=== PATIENT | male | born 1945 | race Caucasian/White ===

== ENCOUNTER 2016-07-02 06:02 | Day surgery (SDC) | payer MEDICARE, OTHER ==
[2016-07-01 16:12] LABS: HEMATOCRIT 41.3 % (42.0-54.0); HEMOGLOBIN 13.8 g/dL (13.5-17.5); MCH 32.2 pg (26.0-34.0); MCHC 33.4 g/dL (31.0-37.0); MCV 96.3 fL (80.0-100.0); MEAN PLATELET VOLUME 9.4 fL (7.4-10.4); PLATELET COUNT 208 10x3/uL (130-400); RBC 4.29 10x6/uL (4.20-6.10); RDW 13.8 % (11.5-14.5); WBC 24.2 10x3/uL (4.8-10.8)
[2016-07-01 16:34] LABS: APTT 25.9 SECONDS (22.8-39.4); INR 0.99 (0.85-1.17); PROTIME 12.9 SECONDS (11.6-15.0)
[2016-07-01 16:35] LABS: ANION GAP 15.5 mmol/L (8-16); CALCIUM 9.8 mg/dL (8.5-10.1); CARBON DIOXIDE 25.9 mmol/L (21.0-32.0); CREATININE - SERUM 1.9 mg/dL (0.6-1.3); POTASSIUM - SERUM 4.4 mmol/L (3.5-5.1)
[2016-07-01 17:36] LABS: LYMPHOCYTES 75 % (15-50); MONOCYTES 1 % (2-11); NEUTROPHILS 24 % (40-80); PLATELET ESTIMATE NORMAL
[~2016-07-02] VITALS: Ht 172.7 cm; Wt 87.1 kg
[~2016-07-02 06:02] MED LIST: BAYER CHEWABLE81 MG PO; CO Q-1030 MG PO; CRESTOR10 MG PO; FISH OIL 1,0001 CA1 PO; GLUCOPHAGE1000 MG PO; KLOR-CON 1010 MEQ PO; LISINOPRIL2.5 MG PO; OMEPRAZOLE20 M1 PO; PROZAC20 MG PO; REQUIP1 MG PO; ZEBETA10 MG PO
[2016-07-02 08:53] VITALS: BP 117/70; Ht 172.7 cm; Wt 87.1 kg
--- NOTE | 2016-07-02 13:39 | NUR ---
PT TOLERATING FULL LIQUIDS. FAMILY AT BEDSIDE. VSS. WILL CONTINUE TO MONITOR.
--- NOTE | 2016-07-02 14:11 | NUR ---
1400- VOIDED WITHOUT DIFFICULTY 1410- IV D/C'D, PT TOLERATED. CATHETER INTACT.
--- NOTE | 2016-07-02 14:40 | NUR ---
1420- DISCHARGE INSTRUCTIONS COMPLETED, PT VERBALIZED UNDERSTANDING. PAPERWORK SIGNED. 1425- DISCHARGED VIA WHEELCHAIR WITH .
--- NOTE | 2016-07-03 14:58 | OP ---
PATIENT NAME: TRINIDAD SOSA MEDICAL RECORD: [id number] :43 LOCATION:.[facility] ADMISSION DATE: SURGEON: DMITRY UGALDE MD DATE OF OPERATION: 07/02/2016 SURGEON: Dmitry Ugalde MD ANESTHESIA: MAC by Rajesh Cintron CRNA. PREOPERATIVE DIAGNOSES: Elevated PSA 9.3. FINDINGS: Small prostate without hypoechoic areas, 17 mL volume. PROCEDURE: Transrectal ultrasound and prostate biopsy. SPECIMENS: Prostate biopsy cores. COMPLICATIONS: None. ESTIMATED BLOOD LOSS: Minimal CLINICAL HISTORY: The patient is a 70-year-old male patient of Dr. Juan Manuel Jiang. He has been observed for a steadily rising PSA. It had been in the region and this past year, it oscar to 9.3. He has a brother who has BPH, but there is no family history of prostate cancer. On digital rectal examination, his prostate is small and it is benign-feeling. He comes now to have a transrectal ultrasound and prostate biopsy. He has been taking Bactrim for the past 2 days. He will continue to take it for 2 more days. We also gave him Ancef and gentamicin in the OR today. He has had a Fleet Enema last night to clear out his rectum. DESCRIPTION OF PROCEDURE: The patient was given IV sedation. He was then placed into dorsal lithotomy position and prepped and draped. The transrectal ultrasound probe was placed into the rectum and used to measure the prostate length, depth and width. From there, using the standard ellipsoid, we calculated prostatic volume at 17 mL. We took at least 3 samples from each of the following areas, the left apex, left mid and left base followed by the right apex, right mid and right base. All of these samples were sent to pathology in formalin in separate containers. That is, each of the 3 samples from the right mid for example, were placed into one container labeled to right mid. There were 6 containers in total. The patient tolerated the procedure quite well and at the end of the procedure, he was brought to the preop holding area. TRANSINT:[id number] Voice Confirmation ID: [id number] DOCUMENT ID: [id number] DMITRY UGALDE MD at 1458 CC: [id number] DICTATION DATE: 07/02/[address] JUDGE: 07/02/16 3506 [facility] 07/02/16 [facility] [address] [place] [address]
== END 2016-07-02 14:25 | disposition home or self-care (01) ==
LOC: D.OPS 06:02 → D.PAN 11:30 → D.OPS 14:25 → D.PAN 07-09 08:15
PROVIDERS: Anesthesiology
DX: R97.20 Elevated prostate specific antigen [PSA] (principal); J45.909 Unspecified asthma, uncomplicated; I10 Essential (primary) hypertension; E11.9 Type 2 diabetes mellitus without complications; K21.9 Gastro-esophageal reflux disease without esophagitis; G47.30 Sleep apnea, unspecified; Z01.812 Encounter for preprocedural laboratory examination

== ENCOUNTER → 2016-07-21 08:11 | Outpatient (CLI) | payer MEDICARE, OTHER ==
[2016-07-02 08:53] VITALS: BMI 29.2
== END | disposition home or self-care (01) ==
LOC: D.NM 08:11
DX: C61 Malignant neoplasm of prostate (principal)

== ENCOUNTER → 2016-07-27 08:22 | Outpatient (CLI) | payer MEDICARE, OTHER ==
[2016-07-02 08:53] VITALS: BMI 29.2
== END | disposition home or self-care (01) ==
LOC: D.CT 08:22
DX: C61 Malignant neoplasm of prostate (principal); C91.10 Chronic lymphocytic leukemia of B-cell type not having achieved remission

== ENCOUNTER 2016-07-29 06:58 | Outpatient (CLI) | payer MEDICARE, OTHER ==
[~2016-07-29] VITALS: Ht 172.7 cm; Wt 88.6 kg
[2016-07-29 07:45] LABS: BASOPHILS 0.2 % (0-2); EOSINOPHILS 0.4 % (0-7); HEMATOCRIT 36.9 % (42.0-54.0); HEMOGLOBIN 12.1 g/dL (13.5-17.5); IMMATURE GRANULOCYTES 0.2 % (0-5); LYMPHOCYTES 68.5 % (15-50); MCH 32.4 pg (26.0-34.0); MCHC 32.8 g/dL (31.0-37.0); MCV 98.7 fL (80.0-100.0); MEAN PLATELET VOLUME 9.4 fL (7.4-10.4); NEUTROPHILS 24.7 % (40-80); PLATELET COUNT 207 10x3/uL (130-400); RBC 3.74 10x6/uL (4.20-6.10); RDW 14.4 % (11.5-14.5); WBC 14.5 10x3/uL (4.8-10.8)
[2016-07-29 07:47] LABS: CARBON DIOXIDE 25.3 mmol/L (21.0-32.0); CREATININE - SERUM 1.2 mg/dL (0.6-1.3); POTASSIUM - SERUM 4.3 mmol/L (3.5-5.1)
[2016-07-29 07:50] LABS: APTT 27.6 SECONDS (22.8-39.4); INR 0.96 (0.85-1.17); PROTIME 12.7 SECONDS (11.6-15.0)
[2016-07-29] MEDS ORDERED: GEMFIBROZIL600 MG PO (09:14)
[2016-07-29 09:19] VITALS: Ht 172.7 cm; Wt 88.6 kg
--- NOTE | 2016-07-29 14:09 | NUR ---
1055 SEE POST TRANSFUSION CHECKLIST FOR VITAL SIGNS.
== END 2016-07-29 13:15 | disposition home or self-care (01) ==
LOC: D.OPS 06:58 → D.CT 09:00 → D.OPS 09:00
PROVIDERS: Specialist
DX: C91.10 Chronic lymphocytic leukemia of B-cell type not having achieved remission (principal)

== ENCOUNTER 2016-09-17 05:10 | Inpatient (IN) | payer MEDICARE, OTHER ==
[2016-09-16 10:10] LABS: HEMATOCRIT 37.5 % (42.0-54.0); HEMOGLOBIN 12.7 g/dL (13.5-17.5); MCH 31.8 pg (26.0-34.0); MCHC 33.9 g/dL (31.0-37.0); MEAN PLATELET VOLUME 7.9 fL (7.4-10.4); RBC 3.99 10x6/uL (4.20-6.10); RDW 13.5 % (11.5-14.5); WBC 12.3 10x3/uL (4.8-10.8)
[2016-09-16 10:11] LABS: PLATELET COUNT 305 10x3/uL (130-400)
[2016-09-16 10:19] LABS: INR 1.05 (0.85-1.17); PROTIME 13.6 SECONDS (11.6-15.0)
[2016-09-16 10:20] LABS: ANION GAP 15.7 mmol/L (8-16); CALCIUM 9.2 mg/dL (8.5-10.1); CARBON DIOXIDE 25.9 mmol/L (21.0-32.0); CREATININE - SERUM 1.3 mg/dL (0.6-1.3); POTASSIUM - SERUM 4.6 mmol/L (3.5-5.1)
[2016-09-16 10:27] LABS: LYMPHOCYTES 49 % (15-50); MONOCYTES 14 % (2-11); NEUTROPHILS 30 % (40-80); PLATELET ESTIMATE NORMAL
[2016-09-17] VITALS (13 sets, daily range): BP systolic 111–153; BP diastolic 55–89; Ht 172.7 cm; Wt 85.5 kg
[~2016-09-17] VITALS: Ht 172.7 cm; Wt 85.5 kg
[~2016-09-17 05:10] MED LIST changes: +GEMFIBROZIL600 MG PO
--- NOTE | 2016-09-17 08:27 | NUR ---
PATIENT POSITIONED SUPINE FLEXED AND KIDNEY REST UP, DR UGALDE PRESENT ON POSITIONING, LUCIE.
--- NOTE | 2016-09-17 12:48 | NUR ---
ALL BPS VIA RIGHT RADIAL ART LINE
[2016-09-17 12:50] LABS: BASOPHILS 0.1 % (0-2); EOSINOPHILS 0.4 % (0-7); IMMATURE GRANULOCYTES 0.3 % (0-5); LYMPHOCYTES 47.6 % (15-50); MCH 32.4 pg (26.0-34.0); MCHC 33.9 g/dL (31.0-37.0); MCV 95.5 fL (80.0-100.0); MEAN PLATELET VOLUME 8.5 fL (7.4-10.4); MONOCYTES 4.8 % (2-11); NEUTROPHILS 46.8 % (40-80); RDW 13.6 % (11.5-14.5)
[2016-09-17 12:51] LABS: HEMATOCRIT 29.8 % (42.0-54.0); HEMOGLOBIN 10.1 g/dL (13.5-17.5); PLATELET COUNT 243 10x3/uL (130-400); RBC 3.12 10x6/uL (4.20-6.10); WBC 19.2 10x3/uL (4.8-10.8)
--- NOTE | 2016-09-17 13:18 | NUR ---
PT ARRIVED TO ROOM ON RECOVERY BED, MOVED OVER TO ICU BED. PT HAS PALPABLE BILATERAL LOWER EXTREMITY PULSES. DRESSING TO LOWER ABDOMEN INTACT, NO BLEEDING NOTED AT THIS TIME. J LUIS DRAIN IN PLACE AT LOWER ABDOMEN. BULB COMPRESSED, BLOODY DRAINAGE NOTED. BILATERAL RADIAL PULSES NOTED. PT HAS RIGHT RADIAL ART LINE IN PLACE. WRIST PROTECTOR IN USE. PT ON 2L NC. BREATH SOUNDS CLEAR. DOES SNORE. HR REGULAR.
--- NOTE | 2016-09-17 14:23 | NUR ---
PT RESTING. FAMILY HAS BEEN IN TO SEE SINCE RECEIVING TO ICU. NO DISTRESS NOTED.
--- NOTE | 2016-09-17 14:50 | NUR ---
PT C/O PAIN IN ABDOMEN. MORPHINE PROVIDED. J LUIS DRAIN EMPTIED. 80ML EMPTIED. BULB COMPRESSED. ANOTHER 80ML OUT IMMEDIATELY.
--- NOTE | 2016-09-17 14:56 | NUR ---
DR UGALDE BY TO SEE PATIENT. ALERTED HIM TO AMOUNT OF DRAINAGE. SAYS THERE WILL BE QUITE A BIT OF DRAINAGE WITH THIS PARTICULAR PROCEDURE AND THAT THE PATIENT DOES HAVE A URINE LEAK AT THE ANASTAMOSIS AT THE POSTERIOR STITCH. IF PATIENT STARTS TO HAVE BLADDER SPASMS HE MAY HAVE A O/B SUPPOSITORY Q8H
--- NOTE | 2016-09-17 15:02 | NUR ---
FAMILY AT BEDSIDE AT THIS TIME FOR VISITATION.
--- NOTE | 2016-09-17 17:05 | NUR ---
PT DINNER TRAY PROVIDED. HOB SET AT 45 DEGREES PER REQUEST. PT DENIES ANY OTHER NEEDS AT THIS TIME. J LUIS HAS BEEN DRAINED ONCE AGAIN AND RECORDED IN I&O FLOWSHEET.
--- NOTE | 2016-09-17 18:02 | NUR ---
FAMILY AT BEDSIDE FOR 6PM VISITATION. PT HAS CONSUMED ALL OF CLEAR LIQUID DIET TRAY. REQUESTED WATER. DOES HAVE SOME PAIN IN ABDOMEN WHEN HE MOVES AROUND OR COUGHS. PILLOW PROVIDED TO HELP SPLINT.
--- NOTE | 2016-09-17 19:15 | NUR ---
SHIFT ASSESSMENT COMPLETE, PATIENT RESTING WELL, DENIES PAIN. STILL A LITTLE LETHARGIC AND CONFUSED TO TIME FROM ANESTHESIA. LUNG SOUNDS CLEAR, BOWEL SOUNDS ACTIVE. INCISION ON LOWER ABDOMINAL IS COVERED WITH DRESSING AND IS C/D/I. SALVADOR CATHETER DRAINING BLOOD TINGED URINE. J LUIS DRAIN ON LOWER ABDOMEN DRAINING SEROSANG FLUID. PERIPHERAL PULSES +2, RIGHT RADIAL A-LINE COVERED WITH DRESSING, WRIST PROTECTOR IN. EXTREMITY WARM AND PINK WITH GOOD SENSATION. DENIES NEED AT THIS TIME.
--- NOTE | 2016-09-17 21:00 | NUR ---
FAMILY AT BEDSIDE, UPDATE PROVIDED.
--- NOTE | 2016-09-17 23:05 | NUR ---
REASSESSMENT COMPLETE, NO ACUTE CHANGES. PATIENT HAVING QUITE A BIT OF DRAINAGE FROM J LUIS DRAIN. WAS MADE AWARE OF IT TODAY AND SAID IT WAS TO BE EXPECTED. WILL MONITOR. VSS.
[2016-09-18] VITALS (14 sets, daily range): BP systolic 124–176; BP diastolic 62–74
--- NOTE | 2016-09-18 | NUR ---
NIBP CUFF USED DUE TO DIFFICULTY GETTING A-LINE TO GIVE GOOD READING.
--- NOTE | 2016-09-18 01:10 | NUR ---
PATIENT RESTING QUIETLY IN BED WITH EYES CLOSED. RR EVEN AND UNLABORED. NO DISTRESS NOTED, VSS.
--- NOTE | 2016-09-18 03:00 | NUR ---
REASSESSMENT COMPLETE, SEE FLOWSHEET. VSS.
--- NOTE | 2016-09-18 05:05 | NUR ---
ATTEMPTED TO DRAW AM LABS FROM RIGHT RADIAL A-LINE. UNABLE TO DRAW, LAB CALLED TO NOTIFY.
[2016-09-18 05:34] LABS: HEMATOCRIT 27.6 % (42.0-54.0); HEMOGLOBIN 9.2 g/dL (13.5-17.5); LYMPHOCYTES 56.8 % (15-50); MCH 31.4 pg (26.0-34.0); MCHC 33.3 g/dL (31.0-37.0); MCV 94.2 fL (80.0-100.0); MEAN PLATELET VOLUME 8.2 fL (7.4-10.4); NEUTROPHILS 37.3 % (40-80); PLATELET COUNT 256 10x3/uL (130-400); RBC 2.93 10x6/uL (4.20-6.10); RDW 13.3 % (11.5-14.5); WBC 16.5 10x3/uL (4.8-10.8)
[2016-09-18 05:44] LABS: ANION GAP 14.3 mmol/L (8-16); CALCIUM 7.7 mg/dL (8.5-10.1); CARBON DIOXIDE 22.1 mmol/L (21.0-32.0); CREATININE - SERUM 1.1 mg/dL (0.6-1.3); POTASSIUM - SERUM 4.4 mmol/L (3.5-5.1)
--- NOTE | 2016-09-18 06:10 | NUR ---
FAMILY AT BEDSIDE, UPDATE GIVEN.
--- NOTE | 2016-09-18 07:06 | NUR ---
PT AWAKE. SHIFT ASSESSMENT COMPLETE. ON HOME CPAP. C/O PAIN IN ABDOMEN. J LUIS DRAIN EMPTIED. 160ML OF BLOOD TINGED DRAINAGE. DRESSING IS CLEAN DRY AND INTACT. URINE MORE CLEAR TODAY. PALPABLE BILATERAL PULSES UPPER AND LOWER. ART LINE NO LONGER FUNCTIONING PROPERLY, BP CUFF IN USE. TEMP IS 99.9 AXILLARY. REMOVED SEVERAL BLANKETS. NS INFUSING AT 150ML/HR.
--- NOTE | 2016-09-18 07:58 | OP ---
PATIENT NAME: TRINIDAD SOSA MEDICAL RECORD: [id number] :43 LOCATION:[facility] ADMISSION DATE:09/17/16 SURGEON: DMITRY UGALDE MD DATE OF OPERATION: 09/17/2016 SURGEON: Dmitry Ugalde MD FIELD CREW CHIEF: David Omalley MD. ANESTHESIOLOGIST: Jefferson Tavares CRNA PREOPERATIVE DIAGNOSIS: Prostate cancer, clinical stage T1c, PSA 9.3. On biopsy, bilateral cores positive for Conyers 3+3 equals 6 prostate cancer, 17 mL prostate size on transrectal ultrasound. FINDINGS: Small prostate, single ureteral orifices seen in the bladder. PROCEDURE: Nerve sparing open radical prostatectomy. SPECIMENS: Left pelvic nodes, right pelvic nodes, prostate with vas deferens and seminal vesicles attached. COMPLICATIONS: None. ESTIMATED BLOOD LOSS: 1200 mL. CLINICAL HISTORY: This is a 70-year-old male, who was referred with an elevated PSA of 9.3. He has no voiding symptoms and on digital rectal examination, he has a small prostate with no palpable nodules. He underwent a prostate biopsy and all 6 sectprs were positive for prostate cancer bilaterally. Conyers score is as described above. He was offered radical prostatectomy versus radiation treatment. He was also offered open radical prostatectomy versus going to [place] for robotic prostatectomy. He elected to stay here and have open radical prostatectomy done. He does have erectile function and he does not have any issues with urinary incontinence. He is aware that he may end up with impotence and urinary incontinence as a result of radical prostatectomy. He wished to proceed with surgery. He had an enema the evening before to empty his rectum. We did cross match him for 2 units of packed red blood cells due to the anticipated blood loss of this procedure, which typically does lead to quite a bit of blood loss. Anesthesia placed an art line after he was given general anesthetic in order to monitor his blood pressure. DESCRIPTION OF PROCEDURE: The patient was given induction of general anesthesia in supine position. He was then positioned in the table so that his iliac crest was at the level of the kidney rest. The bed was broken, so that the 2 ends would sag down and the mid portion of the bed was higher. The kidney rest was also brought up slightly to bring out the maximal distance between the pubic symphysis and the umbilicus. The bed was placed in a slight degree of Trendelenberg. He was well padded on all points. He was prepped and draped in the abdomen and in the penis and scrotum. We then inserted a 16-Cook Islander Glover catheter and put this to bag drainage. A 12 cm long incision was marked out in the anterior abdominal midline starting from the level of the symphysis pubis and extending cranially towards the umbilicus. We initially had a 7.5 cm long incision which is 3 inches but we had to lengthen it during the surgery in order OPERATIVE REPORT [id number] TRINIDAD SOSA to make adequate space in the pelvis. We then went down through the midline of the rectus sheath and bluntly opened up the transversalis fascia. With blunt dissection, we entered into the space of Retzius and bluntly dissected the space. The Bookwalter retractor was placed with padded edges. We lined the edges of the wound with moistened lap sponges and then placed the Bookwalter retractor blades on them. The Glover catheter balloon was used to retract the bladder using the bladder retraction blade. First order of business was the pelvic lymph node dissection bilaterally. The margins of the dissection are anteriorly the external iliac vein. Posteriorly the margin is the obturator nerve. Cranially, the margin is the area where the common iliac vein branches off to the external and internal iliac veins. Distally, the margin of the dissection is at the point where the circumflex iliac vein enters into the external iliac vein. Within these confines along the obturator fossa, we used the Yankauer suction to strip away fatty tissue. This left the lymphatic channels and lymph nodes visible. We clipped the lymphatic channels and using Metzenbaum scissors to divide the lymph channels. In this way, we ultimately freed up the lymph packages on both sides. They were sent separately, one for each side. The obturator nerves on both sides were left intact. I had discussed the issue of frozen sections with the pathologist the day before this case, and she asked me not to send frozen sections. She feels that it introduces artifacts and inaccuracies. Thus, we did not send frozen sections in this case. We then removed the fat from the anterior surface of the prostate. The dorsal venous complex was seen. The patient's prostate is rather small and therefore it was difficult to work within the tight confines. A #15 blade was used to make an incision in the endopelvic fascia on either side of the prostate and a space was bluntly developed using the fingers to develop a space lateral to the prostate and medial to the levator muscles of the pelvic floor. With this dissection, we were able to palpate to the level of the apex of the prostate and we could feel the Glover catheter in the urethra. Up to now, there had been minimal bleeding. We finally have to address the dorsal venous complex, which is the site of the greatest potential bleeding. The veins were taken up with forceps and we extensively Bovied them to luzma them. As we were doing this and heading towards the apex of the prostate, we encountered some rather vigorous bleeding from the dorsal venous complex. A 2-0 silk suture was placed as a [id number] horizontally. The first stitch went just underneath the surface of the undersurface of the pubic symphysis. The second stitch went in the plane between the dorsal venous complex and the anterior wall of urethra. This was then tied down and this managed to control the bleeding. Another such suture was placed to maintain control of the dorsal venous complex. We then also entered into the plane between the dorsal venous complex and the anterior surface of the prostate and placed a 3-0 silk ligature around the complex here. Finally, we got towards the base of the prostate, near the bladder and here, we placed another suture of 3-0 Monocryl across the dorsal vein of the prostate. Thus, we had proximal and distal control. In order to place our lkowad-nu-myvet sutures across the dorsal venous complex towards the apex of the prostate, I had to loosen the right puboprostatic ligament in order to allow or suture to pass. The left puboprostatic ligament was left intact. At this point, we did have to divide the dorsal veins and close to the apex of the prostate. We found some other venous branches going to the apex of the prostate and these were also ligated and divided. OPERATIVE REPORT [id number] TRINIDAD SOSA At this point, the urethra came into view. A right angle clamp was then used to enter the plane between the posterior wall of the urethra and the anterior wall of the rectum. With the right angle clamp in place, the urethra was incised using a #15 blade. This incision occurred about 3 mm distal to the apex of the prostate. We actually transected the anterior and the lateral olvera of the urethra, this left the posterior wall as a small strip remaining. This allowed us to pull the Glover catheter into the field using a right angle clamp. We then used a Cathy clamp to completely clamp the Glover catheter. The Glover catheter was cut near where it exited the penis. The Glover catheter was then pulled entirely back into the wound using a Cathy clamp. We then used another Cathy clamp on the Glover catheter and this served for traction on the prostate and allowed us to retract the prostate apex cranially. The final strip of urethra posteriorly was divided using a #15 blade. We then could see the rectourethralis muscle. This was divided using a #15 blade and Metzenbaum scissors. We avoided using cautery as much as possible in order not to injure the neurovascular bundles which at the apex of the prostate run at the 3 o'clock and 9 o'clock positions. Going along the lateral olvera of the prostate, between the prostate and the rectum, we bluntly dissected the rectum away. Denonvilliers' fascia was kept on the prostatic surface. As we retracted the prostate cranially, we put a clip just above the neurovascular bundle and then used a 15 blade or Metzenbaum scissors to cut the prostatic Denonvilliers' fascia. We then came to the lateral pedicles of the prostate. Clips were applied here and the pedicles were divided using Metzenbaum scissors. We then cut transversely across Denonvilliers' fascia and we were able to find the vasa deferentia as well the seminal vesicles. Each vas deferens was ligated using 3-0 chromic catgut. The vas deferens was then cut so that the unligated portion remained with the prostatic specimen. On the right side, we managed to dissect the seminal vesicle all the way to its apex. A clip was applied and the seminal vesicle was then divided above the clip. We also dissected the seminal vesicle free of its attachments to the rectum. On the left side, we did not get all the way to the apex but we got retirement to the body of the seminal vesicle and clips were applied here and it was divided. This now left the bladder neck. We attempted to do a bladder neck sparing incision but it was difficult due to the small size of the prostate. The Bovie was used to enter the plane between the bladder neck and the cranial surface of the prostate or base of the prostate. We entered into the bladder mucosa and we continued the cautery over the Glover catheter balloon. Before we divided the posterior wall of the bladder, we did look for the ureteral orifices. The left ureteral orifice is at some distance from the incision and it is intact. The right ureteral orifice was rather close to the incision, but it was still intact. We could see a jet of urine from each ureteral orifice. We completed the dissection of the bladder neck with care to avoid any injury to the ureteral orifices. Finally, the prostate was entirely free and it was sent to pathology in formalin. A tennis racquet narrowing of the bladder neck was then performed. A 3-0 Vicryl sutures were used in simple interrupted fashion posteriorly to bring the cut edges of the posterior wall of the bladder back together. This narrowed the bladder neck to about 1 cm in diameter. The ureteral orifices were still intact as evidenced by jets of urine coming out of the ureteral orifices. We then used 4-0 Vicryl to maik the bladder mucosa over the cut edge of the bladder neck. Simple interrupted sutures were used here. Finally, we looked towards finding any bleeding remaining in the pelvis. No active bleeding. We did put Surgicel sponges on either side of the pelvic wall. We were then ready for our anastomotic sutures. A 22-Cook Islander male sound was placed OPERATIVE REPORT [id number] TRINIDAD SOSA into the urethra and it was seen coming through the cut edge of the urethral stump in the pelvis. We put our anastomotic sutures up against the metal of the sound on the urethral side. Five sutures were used: at the 12 o'clock, 2 o'clock and 10 o'clock, 5 o'clock and 7 o'clock positions. The 2 posterior sutures were placed always from outside in and then going inside out on the other structure which is the bladder. These were then tagged with rubber shod mosquitos. The 2 anterior sutures were placed again going outside in then inside out so that the knot will be on the outside and these were tagged with rubber shod hemostats. Finally, we removed the male sound and placed a 22-Cook Islander 30 cc balloon Glover catheter. The catheter was threaded into the bladder with the balloon deflated. The 12 o'clock position suture was then placed into the urethra and then into its corresponding position in the bladder neck. We removed the bladder blade of the Bookwatler. The Glover catheter had the balloon inflated with 30 cc of water. We manually pushed the bladder neck down towards the urethral stump. The anastomotic sutures were then tied down starting from the anterior 12 o'clock position suture and working our way around posteriorly. I irrigated the Glover catheter with sterile saline. There was a slight leak from our posterior suture at the 5 o'clock position on the right side, but nothing can really be done at this point. The leak is minimal and it will heal. A Celestino-Freitas drain was placed into the area of our surgery, but not directly over the bladder neck anastomosis. It comes out through a right lower quadrant stab incision using a #15 blade. It was brought out using a tonsil clamp. The drain tubing was cut shorter and it was tied to the skin using 2-0 nylon. We then removed our Bookwalter retractor and flattened the patient out. All the sponge and instrument counts were correct. We then closed. Looped 0 PDS was used in running fashion with 1 set coming from the superior portion of the incision and another set from the inferior portion of the incision and these sutures were tied in the middle. The wound was irrigated with normal saline and then khalida were applied to close the skin. Wound dressing with Telfa, gauze and tape was then applied over the abdominal incision. The patient did not receive any blood in the operating room. We will check his hemoglobin level in the recovery room. Since he still has an art line, then will put him in the ICU overnight for monitoring. TRANSINT:[id number] Voice Confirmation ID: [id number] DOCUMENT ID: [id number] DMITRY UGALDE MD at 0758 CC: [id number] DICTATION DATE: 09/17/16 1249 CONTRACT NEGOTIATION MANAGER: 09/17/16 2233 ADM IN [facility] [address] [place] [address]
--- NOTE | 2016-09-18 09:52 | NUR ---
CASE MANAGEMENT AT BEDSIDE VISITING WITH PT.
--- NOTE | 2016-09-18 10:01 | NUR ---
* Is the patient Alert and Oriented? Yes 0 * How many steps to enter\exit or inside your home? 0 0 * PCP Dr. Jiang 0 * Pharmacy [facility] on [address] 0 * Preadmission Environment Home with Family 0 * ADLs Independent 0 * Equipment CPAP 0 * List name and contact numbers for known caregivers / representatives who currently or will assist patient after discharge: Spouse - Fabi [phone] 0 * Additional services required to return to the preadmission environment? No 0 * Can the patient safely return to the preadmission environment? Yes 0 * Has this patient been hospitalized within the prior 30 days at any hospital? No Patient Name: TRINIDAD SOSA Admission Status: Elective Accout number: [id number] Admission Date: 09-17-2016 : 1945 Admission Diagnosis: Attending: AYAH Current LOS: 1 Anticipated DC Date: 09-19-2016 Planned Disposition: Home Primary Insurance: MEDICARE A & B Discharge Planning Comments: CM met with patient to assess dc plans/needs. Patient states he lives at home with his , Fabi, & adult son. He reports he is independent at home and has not had home health services. He has a home CPap machine. At dc, he will return home with his family. No needs identified or verbalized at this time. CM will follow. Food Checker: Sahra Lam
--- NOTE | 2016-09-18 11:07 | NUR ---
RIGHT RADIAL A-LINE DC'D CATH FULLY INTACT. MANUAL PRESSURE APPLIED TIMES 5 MINUTES. CLEAR DRESSING APPLIED. PT INSTRUCTED ON S/SX OF BLEEDING AND TO REPORT IMMEDIATELY. C/L IN REACH.
--- NOTE | 2016-09-18 11:28 | NUR ---
INSTRUCTED PT ON SUPERVISOR RESEARCH SHOP USE. SUPERVISOR RESEARCH SHOP SET UP VERIFIED BY LISBETH MCDONALD.
--- NOTE | 2016-09-18 11:51 | NUR ---
AMBULATED WITH P.T. UP TO CHAIR FOR LUNCH. CANE PUSHER AND C/L IN REACH. REPORT CALLED TO DARLIN MCDONALD. PT TO EAT LUNCH BEFORE TRANSFER.
--- NOTE | 2016-09-18 12:08 | NUR ---
PT AT BEDSIDE VISITING. INFORMED OF TRANSFER AND NEW ROOM NUMBER.
--- NOTE | 2016-09-18 12:35 | NUR ---
PT TRANSFERRED TO ROOM 2217 VIA WHEELCHAIR. ASSISTED PT TO BATHROOM. INSTRUCTED TO USE EMERGENCY CALL LIGHT AND NOT TO GET UP UNASSISTED. MET AT ROOM BY PT'S NURSE JORDAN MCDONALD. INFORMED THAT PT WAS IN BATHROOM ATTEMPTING BM WITH EMERGENCY C/L IN REACH.
--- NOTE | 2016-09-18 12:45 | NUR ---
PT TO ROOM 2217 FROM ICU VIA WHEELCHAIR.PT WITHOUT DISTRESS.DRESSING TO ABDOMEN CDI.J LUIS RLQ HAS PINK TINTED LIQUID IN BULB.SALVADOR TO GRAVITY WITH CONCENTRATED BLOOD TINGED URINE IN BAG.ORIENTATION TO ROOM.CALL LIGHT IN REACH
--- NOTE | 2016-09-18 14:02 | NUR ---
ASSIST IN BED. DID NOT HAVE BM. AT BEDSIDE.ORIENTATION TO ROOM AGAIN WITH PT.CALL LIGHT IN REACH
--- NOTE | 2016-09-18 18:55 | NUR ---
REMAINS WITHOUT NEEDS,WITHOUT DISTRESS.CONT PLAN OF CARE
--- NOTE | 2016-09-18 19:40 | NUR ---
SLEEPING, AT BEDSIDE, CPAP ON, BREATHING EVEN UNLABORED, NO DISTRESS NOTED, BE DLOWEST POSITION, CALL LIGHTIN REACH, WILL CONTINUE TO MONITOR
--- NOTE | 2016-09-18 21:00 | NUR ---
HELPED BACK TO BED FROM RESTROOM, J LUIS DRAIN EMPTIED 100CC, BED LOWEST POSITION, CALL LIGHT IN REACH
[2016-09-19] VITALS (7 sets, daily range): BP systolic 116–154; BP diastolic 48–71
--- NOTE | 2016-09-19 02:20 | NUR ---
UP TO BATHROOM, BED LOWEST POSITION, DENIES NEEDS, WILL CONTINUE TO MONITOR
--- NOTE | 2016-09-19 08:05 | NUR ---
ASSESSMENT COMPLETE. IV TO L FA PATENT. NS INFUSING AT 150 CC/HR VIA PUMP. MASTER PLUMBER MORPHINE 1-10-10 IN USE FOR PAIN CONTROL. SALVADOR PATENT DRAINING BLOOD TINGED URINE. J LUIS X 1 TO ABDOMEN. FREQUENTLY FILLING WITH YELLOWISH DRAINAGE. SCD'S IN USE TO BILAT LEGS.DRESSING C/D/I TO LOWER ABDOMEN.
[2016-09-19 11:56] LABS: BASOPHILS 0.1 % (0-2); EOSINOPHILS 0.7 % (0-7); HEMATOCRIT 23.7 % (42.0-54.0); HEMOGLOBIN 7.9 g/dL (13.5-17.5); IMMATURE GRANULOCYTES 0.3 % (0-5); LYMPHOCYTES 54.7 % (15-50); MCHC 33.3 g/dL (31.0-37.0); MEAN PLATELET VOLUME 8.2 fL (7.4-10.4); MONOCYTES 5.9 % (2-11); NEUTROPHILS 38.3 % (40-80); PLATELET COUNT 202 10x3/uL (130-400); RBC 2.47 10x6/uL (4.20-6.10); RDW 13.7 % (11.5-14.5); WBC 14.9 10x3/uL (4.8-10.8)
--- NOTE | 2016-09-19 12:30 | NUR ---
VISITING WITH COMPANY. DENIES NEED FOR COMPTON AT THIS TIME.
--- NOTE | 2016-09-19 16:10 | NUR ---
NO CHANGES NOTED AT PRESENT. DENIES NEED FOR PAIN MEDICATION AT THIS TIME.
--- NOTE | 2016-09-19 16:45 | NUR ---
AMBULATED AROUND NURSES'S STATION TWICE. ASSISTED TO CHAIR TO EAT DINNER. ROOM TEMP WARM. FAMILY MEMBER LOWERED ROOM TEMPERATURE. STATES THAT PATIENT FREQUENTLY HAS LOW GRADE TEMPS.
--- NOTE | 2016-09-19 18:15 | NUR ---
IV TO L FA LEAKING. IV RESITED TO R FA WITH 22 GUAGE X 1 ATTEMPT. FAMILY AT BEDSIDE.
--- NOTE | 2016-09-19 20:45 | NUR ---
NORCO 7.5 GIVEN FOR PAIN OF 5, WALKED 500 FEET, LINENS CHANGED, DENIES OTHER NEEDS, BED LOWEST POSITION, CALL LIGHT IN REACH, WILL CONTINUE TO MONITOR
--- NOTE | 2016-09-19 23:50 | NUR ---
STARTED FIRST UNIT OF BLOOD, WILL CONTINUE TO MONITOR
[2016-09-20] VITALS (15 sets, daily range): BP systolic 112–137; BP diastolic 51–69
--- NOTE | 2016-09-20 02:05 | NUR ---
RESTING QUIETLY WITH EYES CLOSED. CPAP MASK ON. RR EVEN U/L. NO S/S OF DISTRESS OR DISCOMFORT. BED IS LOW WITH SR UP X2. FAMILY MEMBER PRESENT IN ROOM.
--- NOTE | 2016-09-20 03:30 | NUR ---
SECOND UNIT OF BLOOD STARTED, NO ADVERSE REACTION NOTED, WILL CONTINUE TO MONITOR
[2016-09-20 06:52] LABS: BASOPHILS 0.1 % (0-2); HEMATOCRIT 27.1 % (42.0-54.0); HEMOGLOBIN 9.1 g/dL (13.5-17.5); IMMATURE GRANULOCYTES 0.3 % (0-5); MCH 31.2 pg (26.0-34.0); MCHC 33.6 g/dL (31.0-37.0); MEAN PLATELET VOLUME 8.3 fL (7.4-10.4); MONOCYTES 3.9 % (2-11); NEUTROPHILS 31.7 % (40-80); PLATELET COUNT 172 10x3/uL (130-400); RBC 2.92 10x6/uL (4.20-6.10); RDW 14.7 % (11.5-14.5); WBC 14.7 10x3/uL (4.8-10.8)
[2016-09-20 06:56] LABS: MCV 92.8 fL (80.0-100.0)
[2016-09-20 07:10] LABS: CALC OSMOLALITY 279 mosm/kg (275-300); CALCIUM 7.5 mg/dL (8.5-10.1); CHLORIDE - SERUM 107 mmol/L (98-107); CREATININE - SERUM 0.9 mg/dL (0.6-1.3); GLUCOSE 164 mg/dL (74-106); POTASSIUM - SERUM 3.9 mmol/L (3.5-5.1); SODIUM 139 mmol/L (136-145); UREA NITROGEN 8 mg/dL (7-18); eGFR NON AFRICAN AMERICAN 88 mL/min (90-120)
--- NOTE | 2016-09-20 08:06 | NUR ---
PATIENT RESTING QUIETLY WITH HIS EYES CLOSED. PATIENT AWAKENS EASILY TO VERBAL STIMULI. FAMILY IN ROOM WITH PATIENT. PATIENT DENIES ANY PAIN AT PRESENT TIME. UTILITY BAG ASSEMBLER MORPHINE IN USE FOR PAIN CONTROL. IV SITE PATENT WITHOUT ANY S/S OF INFECTION IN PATIENT'S RIGHT FOREARM. PATIENT DENIES ANY NEEDS AT PRESENT TIME. CALL LIGHT IN PATIENT'S REACH. WILL MONITOR PATIENT.
[2016-09-20] MEDS ORDERED: NORCO 7.5/325 T1 TA1 PO (14:10)
--- NOTE | 2016-09-20 14:23 | NUR ---
DISCHARGE INSTRUCTIONS VERBALIZED TO PATIENT. PATIENT VERBALIZED UNDERSTANDING AND SIGNED DISCHARGE PAPERS. PATIENT'S IV DC'D FROM PATIENT'S RIGHT FOREARM. PATIENT TOLERATED WELL. 2X2 GAUZE AND BANDAID APPLIED.
--- NOTE | 2016-09-20 14:30 | NUR ---
PATIENT DISCHARGED VIA WHEELCHAIR TO PRICATE VEHICLE.
== END 2016-09-20 14:30 | disposition home or self-care (01) | DRG 708 ==
LOC: D.SDCHOLD 05:10 → D.CVICU 05:10 → D.SDCHOLD 07:30 → D.CVICU 13:13 → D.MS 09-18 12:41
PROVIDERS: Anesthesiology; ADMIT Urology
PROC: 07TC0ZZ Resection of Pelvis Lymphatic, Open Approach (ICD-10-PCS; 2016-09-17)
PROC: 0VT00ZZ Resection of Prostate, Open Approach (ICD-10-PCS; principal; 2016-09-17 07:30)
DX: C61 Malignant neoplasm of prostate (principal); N52.9 Male erectile dysfunction, unspecified; J45.909 Unspecified asthma, uncomplicated; I10 Essential (primary) hypertension; E11.9 Type 2 diabetes mellitus without complications; K21.9 Gastro-esophageal reflux disease without esophagitis

== ENCOUNTER → 2016-10-14 10:45 | Outpatient (CLI) | payer MEDICARE, OTHER ==
[2016-09-17 13:45] VITALS: BMI 28.6
[~2016-10-14 10:45] MED LIST changes: +NORCO 7.5/325 T1 TA1 PO
[2016-10-14 20:31] LABS: APPEARANCE CLOUDY (CLEAR); BILIRUBIN NEGATIVE (NEGATIVE); COLOR YELLOW (YELLOW); GLUCOSE NEGATIVE (NEGATIVE); KETONE NEGATIVE (NEGATIVE); LEUKOCYTE ESTERASE 2+ (NEGATIVE); NITRITE NEGATIVE (NEGATIVE); PROTEIN NEGATIVE (NEGATIVE); UROBILINOGEN NORMAL (NORMAL)
[2016-10-14 20:32] LABS: BACTERIA MANY /hpf (NONE SEEN); RED CELLS - URINE 0-5 /hpf (0-5); WHITE CELLS - URINE 25-50 /hpf (0-5)
== END | disposition home or self-care (01) ==
LOC: D.LAB 10:45
PROVIDERS: Urology
DX: Z12.5 Encounter for screening for malignant neoplasm of prostate (principal)

== ENCOUNTER 2017-07-09 06:12 | Emergency (ER) | payer MEDICARE, OTHER ==
[2016-09-17 13:45] VITALS: BMI 28.6
[2017-07-09 06:32] LABS: HEMATOCRIT 37.3 % (42.0-54.0); HEMOGLOBIN 12.6 g/dL (13.5-17.5); MCH 31.8 pg (26.0-34.0); MCHC 33.8 g/dL (31.0-37.0); MCV 94.2 fL (80.0-100.0); MEAN PLATELET VOLUME 9.3 fL (7.4-10.4); PLATELET COUNT 197 10x3/uL (130-400); RBC 3.96 10x6/uL (4.20-6.10); RDW 13.5 % (11.5-14.5); WBC 31.8 10x3/uL (4.8-10.8)
[2017-07-09 06:50] LABS: ALBUMIN 4.1 g/dL (3.4-5.0); ALKALINE PHOSPHATASE 85 U/L (46-116); ALT (SGPT) 29 U/L (10-68); BILIRUBIN - TOTAL 0.38 mg/dL (0.2-1.3); CALC OSMOLALITY 287 mosm/kg (275-300); CALCIUM 9.4 mg/dL (8.5-10.1); CHLORIDE - SERUM 104 mmol/L (98-107); CREATININE - SERUM 1.4 mg/dL (0.6-1.3); GLUCOSE 232 mg/dL (74-106); POTASSIUM - SERUM 4.2 mmol/L (3.5-5.1); SODIUM 140 mmol/L (136-145); UREA NITROGEN 19 mg/dL (7-18); eGFR NON AFRICAN AMERICAN 53 mL/min (90-120)
[2017-07-09 06:55] LABS: CREATINE KINASE 94 UL (21-232)
[2017-07-09 06:56] LABS: TROPONIN-I < 0.017 ng/mL (0.000-0.060)
[2017-07-09 07:22] LABS: APPEARANCE CLEAR (CLEAR); COLOR YELLOW (YELLOW); NITRITE NEGATIVE (NEGATIVE); PROTEIN NEGATIVE (NEGATIVE); SPECIFIC GRAVITY 1.015 (1.005-1.020)
[2017-07-09 07:23] LABS: BILIRUBIN NEGATIVE (NEGATIVE); GLUCOSE 100 mg/dL (NEGATIVE); KETONE NEGATIVE (NEGATIVE); UROBILINOGEN NORMAL (NORMAL)
[2017-07-09 07:58] LABS: LYMPHOCYTES 58 % (15-50); MONOCYTES 8 % (2-11); NEUTROPHILS 26 % (40-80)
[2017-07-09 08:04] LABS: PLATELET ESTIMATE NORMAL
== END 2017-07-09 11:05 | disposition home or self-care (01) ==
LOC: D.ER 06:12
PROVIDERS: Emergency Medicine; Family Medicine
DX: R07.9 Chest pain, unspecified (principal); Z85.6 Personal history of leukemia; E11.65 Type 2 diabetes mellitus with hyperglycemia; R07.89 Other chest pain; I49.3 Ventricular premature depolarization

== ENCOUNTER 2018-02-27 07:49 | Emergency (ER) | payer MEDICARE, OTHER ==
[~2018-02-27] VITALS: Ht 172.7 cm; Wt 84.1 kg
[2018-02-27 07:52] VITALS: Ht 172.7 cm; Wt 84.1 kg
[2018-02-27] MEDS ORDERED: FISH OIL 1,0001 CA1 PO (07:55)
[2018-02-27] MEDS ORDERED: CO Q-1030 MG PO (07:55)
[2018-02-27 08:45] LABS: APPEARANCE CLEAR (CLEAR); BILIRUBIN NEGATIVE (NEGATIVE); COLOR YELLOW (YELLOW); GLUCOSE NEGATIVE (NEGATIVE); KETONE NEGATIVE (NEGATIVE); NITRITE NEGATIVE (NEGATIVE); PROTEIN NEGATIVE (NEGATIVE); SPECIFIC GRAVITY 1.015 (1.005-1.020); UROBILINOGEN NORMAL (NORMAL)
[2018-02-27 08:46] LABS: BACTERIA NONE SEEN /hpf (NONE SEEN); EPITHELIAL CELLS 0-5 /hpf (0-5); RED CELLS - URINE 0-5 /hpf (0-5); WHITE CELLS - URINE 0-5 /hpf (0-5)
[2018-02-27 08:50] LABS: HEMATOCRIT 37.5 % (42.0-54.0); HEMOGLOBIN 12.7 g/dL (13.5-17.5); MCH 32.2 pg (26.0-34.0); MCHC 33.9 g/dL (31.0-37.0); MCV 94.9 fL (80.0-100.0); MEAN PLATELET VOLUME 9.3 fL (7.4-10.4); PLATELET COUNT 209 10x3/uL (130-400); RBC 3.95 10x6/uL (4.20-6.10); RDW 13.6 % (11.5-14.5); WBC 23.3 10x3/uL (4.8-10.8)
[2018-02-27 09:11] LABS: ALKALINE PHOSPHATASE 85 U/L (46-116); ALT (SGPT) 33 U/L (10-68); BILIRUBIN - TOTAL 0.48 mg/dL (0.2-1.3); CALC OSMOLALITY 283 mosm/kg (275-300); CARBON DIOXIDE 21.9 mmol/L (21.0-32.0); CHLORIDE - SERUM 103 mmol/L (98-107); CREATININE - SERUM 1.3 mg/dL (0.6-1.3); GLUCOSE 150 mg/dL (74-106); POTASSIUM - SERUM 4.6 mmol/L (3.5-5.1); PROTEIN - SERUM 7.8 g/dL (6.4-8.2); SODIUM 137 mmol/L (136-145); UREA NITROGEN 31 mg/dL (7-18); eGFR NON AFRICAN AMERICAN 57 mL/min (90-120)
[2018-02-27 09:24] LABS: LYMPHOCYTES 77 % (15-50); MONOCYTES 3 % (2-11); NEUTROPHILS 18 % (40-80); PLATELET ESTIMATE DECREASED
[2018-02-27 09:26] LABS: AMYLASE - SERUM 48 U/L (25-115); CKMB 0.6 U/L (0.0-3.6); CREATINE KINASE 65 UL (21-232); LIPASE 171 U/L (73-393)
[2018-02-27 09:27] LABS: TROPONIN-I < 0.017 ng/mL (0.000-0.060)
[2018-02-27] MEDS ORDERED: ZOFRAN4 MG PO (11:39)
[2018-02-27] MEDS ORDERED: FLAGYL500 MG PO (11:39)
[2018-02-27 11:48] VITALS: BP 131/68
== END 2018-02-27 11:50 | disposition home or self-care (01) ==
LOC: D.ER 07:49
PROVIDERS: Family Medicine
DX: K52.9 Noninfective gastroenteritis and colitis, unspecified (principal); R42 Dizziness and giddiness; C95.10 Chronic leukemia of unspecified cell type not having achieved remission; E11.9 Type 2 diabetes mellitus without complications; I10 Essential (primary) hypertension

== ENCOUNTER 2018-07-03 09:50 | Inpatient (IN) | payer MEDICARE, OTHER ==
[~2018-07-03] VITALS: Ht 172.7 cm; Wt 88.5 kg
[~2018-07-03 09:50] MED LIST changes: +FLAGYL500 MG PO; +ZOFRAN4 MG PO
[2018-07-03 10:27] LABS: HEMATOCRIT 35.4 % (42.0-54.0); HEMOGLOBIN 11.8 g/dL (13.5-17.5); MCH 32.5 pg (26.0-34.0); MCHC 33.3 g/dL (31.0-37.0); MCV 97.5 fL (80.0-100.0); MEAN PLATELET VOLUME 8.9 fL (7.4-10.4); PLATELET COUNT 209 10x3/uL (130-400); RBC 3.63 10x6/uL (4.20-6.10); RDW 13.9 % (11.5-14.5); WBC 24.1 10x3/uL (4.8-10.8)
[2018-07-03 10:37] LABS: ALBUMIN 3.7 g/dL (3.4-5.0); ANION GAP 15.4 mmol/L (8-16); BILIRUBIN - TOTAL 0.69 mg/dL (0.2-1.3); CALCIUM 9.7 mg/dL (8.5-10.1); CARBON DIOXIDE 25.8 mmol/L (21.0-32.0); CREATININE - SERUM 1.2 mg/dL (0.6-1.3); POTASSIUM - SERUM 4.2 mmol/L (3.5-5.1); PROTEIN - SERUM 8.2 g/dL (6.4-8.2)
[2018-07-03 11:03] LABS: MONOCYTES 1 % (2-11); NEUTROPHILS 15 % (40-80); PLATELET ESTIMATE NORMAL; PLATELET MORPHOLOGY GIANT PLTS PRESENT
[2018-07-03 11:57] VITALS: BP 163/80
--- NOTE | 2018-07-03 12:12 | NUR ---
PATIENT URINE SPECIMEN COLLECTED AND SENT TO LAB. ICE WATER GIVEN
[2018-07-03 12:25] LABS: APPEARANCE CLEAR (CLEAR); COLOR STRAW (YELLOW); GLUCOSE NEGATIVE (NEGATIVE); NITRITE NEGATIVE (NEGATIVE); PROTEIN NEGATIVE (NEGATIVE)
[2018-07-03 12:26] LABS: BILIRUBIN NEGATIVE (NEGATIVE); KETONE NEGATIVE (NEGATIVE); UROBILINOGEN NORMAL (NORMAL)
[2018-07-03 13:00] VITALS: BP 156/81
--- NOTE | 2018-07-03 13:30 | NUR ---
ARRRIVED TO UNIT TO ROOM 1205 VIA WHEELCHAIR FROM ER, ORATITATED TO ROOM CL IN REACH
[2018-07-03 15:26] VITALS: BP 149/77; BMI 29.7
--- NOTE | 2018-07-03 16:30 | NUR ---
ASSESSMENT COMPLETE. PATIENT RESTING IN BED. PATIENT AT BEDSIDE. CALL LIGHT WITHIN REACH. PATIENT COMPLAINS OF PAIN TO LEFT SIDE OF NECK. LEFT SIDE OF NECK NOTED TO BE SWOLLEN AT AREA OF PARATOID GLAND. PATIENT STATES VERY DIFFICULT TO SWALLOW OR EAT ANYTHING. SWELLING, PAIN, AND CLINICAL PRESENTATION RESEMBLES MUMPS.
[2018-07-03 17:30] VITALS: BP 172/77
--- NOTE | 2018-07-03 19:10 | NUR ---
AROUSES EASILY FOR VS... BED IS LOW AND LOCKED SKIN WARM AND DRY LUNGS ARE CONGESTED BUT CLEARING WITH COUGH. IV PATENT IN LEFT AC..ASKING FOR HIS CPAP AT NIGHT
[2018-07-03 20:08] VITALS: BP 164/74
[2018-07-04 01:17] VITALS: BP 154/72
--- NOTE | 2018-07-04 03:07 | NUR ---
I have reviewed this patient and I concur with the Shift Assessment completed by the Licensed Practical Nurse today this shift.
[2018-07-04 04:54] VITALS: BP 143/71
[2018-07-04 06:31] LABS: CALC OSMOLALITY 277 mosm/kg (275-300); CALCIUM 8.9 mg/dL (8.5-10.1); CARBON DIOXIDE 25.4 mmol/L (21.0-32.0); CHLORIDE - SERUM 102 mmol/L (98-107); GLUCOSE 127 mg/dL (74-106); POTASSIUM - SERUM 3.9 mmol/L (3.5-5.1); SODIUM 137 mmol/L (136-145); eGFR NON AFRICAN AMERICAN 78 mL/min (90-120)
[2018-07-04 06:32] LABS: HEMATOCRIT 32.7 % (42.0-54.0); HEMOGLOBIN 10.8 g/dL (13.5-17.5); MCH 32.1 pg (26.0-34.0); MCV 97.3 fL (80.0-100.0); MEAN PLATELET VOLUME 9.1 fL (7.4-10.4); PLATELET COUNT 206 10x3/uL (130-400); RBC 3.36 10x6/uL (4.20-6.10); RDW 13.8 % (11.5-14.5); WBC 21.8 10x3/uL (4.8-10.8)
[2018-07-04 06:36] LABS: UREA NITROGEN 17 mg/dL (7-18)
--- NOTE | 2018-07-04 07:10 | NUR ---
RECEIVED PATIENT. LYING IN BED SUPINE EYES CLOSED, EASILY AROUSED WITH VERBAL STIMULI. AT BEDSIDE. SHIFT ASSESSMENT COMPLETE. DENIES ANY PAIN OR NEEDS AT THIS TIME. CALL LIGHT WITHIN REACH, FALL PRECAUTIONS IN PLACE. WILL CONTINUE TO MONITOR
[2018-07-04 07:23] VITALS: BP 154/67
--- NOTE | 2018-07-04 07:35 | MORECARE ---
CASE MANAGEMENT DISCHARGE SUMMARY PATIENT: TRINIDAD SOSA UNIT: [id number] ADM DATE: 07/03/18 AGE: 72 : 43 SEX: M ROOM/BED: D.1205 AUTHOR: MARCEL,DOC PHYSICIAN: REFERRING PHYSICIAN: SANGEETHA CARTER MD DATE OF SERVICE: 07/04/18 Discharge Plan Patient Name: TRINIDAD SOSA Facility: [facility]:[place] : 1945 Planned Disposition: Home Anticipated Discharge Date: Discharge Date: Expected LOS: Initial Reviewer: [email or web address] Initial Review Date: 07/04/2018 Generated: 07/04/18 8:35 am Comments DCP- Discharge Planning Updated by [email or web address]: Yoly Paul on 07/04/18 6:[address] Patient Name: TRINIDAD SOSA Admission Status: ER Accout number: [id number] Admission Date: 07-03-2018 : 1945 Admission Diagnosis: Attending: SANGEETHA CARTER Current LOS: 1 Anticipated DC Date: Planned Disposition: Home Primary Insurance: MEDICARE A & B Discharge Planning Comments: CM met with patient about discharge planning. CM explained CM role and verbal consent was given to do dc assessment. CM educated on Home Health, DME and rehab services that are available. Patient states hIs discharge plan is to return to home with Fabi and she will drive home at DC. States home environment is a safe discharge. Denies any discharge planning needs at this time.. Has CPAP at home already. CM will continue to follow and assist as needed with discharge planning needs. Customer Marketing Assistant: Yoly Paul DCPIA - Discharge Planning Initial Assessment Updated by [email or web address]: Yoly Paul on 07/04/18 7:30 am * Is the patient Alert and Oriented? Yes * How many steps to enter\exit or inside your home? * PCP Juan Manuel Jiang * [facility] [address] * Preadmission Environment Home with Family * ADLs Independent * Equipment CPAP * List name and contact numbers for known caregivers / representatives who currently or will assist patient after discharge: Fabi pts [phone] * Verbal permission to speak to the caregivers and representatives has been obtained from the patient. Yes * Community resources currently utilized None * Please name any agencies selected above. [facility] * Additional services required to return to the preadmission environment? No * Has this patient been hospitalized within the prior 30 days at any hospital? No Patient Name: TRINIDAD SOSA Page 46496 at 0735 All edits/amendments must be made on the electronic document DICTATION DATE: 07/04/18733 DRY PRESS OPERATOR HELPER: MITRA 07/04/18733 RPT#: [id number] DC DATE: STATUS: ADM IN [facility] [address] [place] [address] END OF REPORT
[2018-07-04 08:49] LABS: LYMPHOCYTES 60 % (15-50); MONOCYTES 8 % (2-11); NEUTROPHILS 30 % (40-80); PLATELET ESTIMATE NORMAL
--- NOTE | 2018-07-04 09:08 | NUR ---
SITTING UP IN BED VISITING FAMILY. DENIES ANY NEEDS OR PAIN. CALL LIGHT WITHIN REACH, FALL PRECAUTIONS IN PLACE. WILL CONTINUE TO MONITOR
--- NOTE | 2018-07-04 11:48 | NUR ---
ALERT AND ORIENTED X4. SITTING UP IN BED. FAMILY AT BEDSIDE. DENIES ANY NEEDS AT THIS TIME. AGREE WITH PILING SETTER ASSESSMENT. RADHA MCCOLLUM RESUMES PLAN OF CARE AND SAFETY PRECAUTIONS.
--- NOTE | 2018-07-04 12:11 | NUR ---
SITTING UP IN BED WATCHING TV. LEFT FOR A COUPLE OF HOURS GOING TO GET PT CPAP FROM HOME. CALL LIGHT WITHIN REACH, FALL PRECAUTIONS IN PLACE
[2018-07-04 12:12] VITALS: BP 148/62
[2018-07-04 13:00] VITALS: BMI 29.6
--- NOTE | 2018-07-04 14:45 | NUR ---
d/c left forearm iv with cath tip intact, applied pressure 3 min no sign of bleeding. started right forearm 22g x1 attempt. dressing applied flushes and draws without difficulty. pt tolerated well
[2018-07-04 17:13] VITALS: BP 138/61
--- NOTE | 2018-07-04 18:33 | NUR ---
SITTING UP IN BED WATCHING TV. AT BEDSIDE NOTED. NO SIGNS OF DISTRESS NOTED. DENIES ANY NEEDS OR PAIN. CALL LIGHT WITHIN REACH, FALL PRECAUTIONS IN PLACE. WILL CONTINUE TO MONITOR
[2018-07-04 21:00] VITALS: BP 132/79
--- NOTE | 2018-07-04 21:04 | NUR ---
PT IN BED LOW POSITION, EYES OPEN, FAMILY AT BEDSIDE, FLUIDS AND CALL LIGHT WITHIN REACH, PT UP TO TOILET, GAIT UNSTEADY, SAFETY PROTOCOL IN PLACE
[2018-07-05 00:15] VITALS: BP 125/59
[2018-07-05 06:27] LABS: BASOPHILS 0.1 % (0-2); EOSINOPHILS 0.5 % (0-7); HEMATOCRIT 32.1 % (42.0-54.0); HEMOGLOBIN 10.6 g/dL (13.5-17.5); IMMATURE GRANULOCYTES 0.2 % (0-5); LYMPHOCYTES 75.3 % (15-50); MCH 32.1 pg (26.0-34.0); MCV 97.3 fL (80.0-100.0); MEAN PLATELET VOLUME 9.1 fL (7.4-10.4); MONOCYTES 3.7 % (2-11); NEUTROPHILS 20.2 % (40-80); PLATELET COUNT 217 10x3/uL (130-400); RDW 13.8 % (11.5-14.5); WBC 19.9 10x3/uL (4.8-10.8)
[2018-07-05 06:40] VITALS: BP 136/69
[2018-07-05 06:47] LABS: ALBUMIN 2.9 g/dL (3.4-5.0); ANION GAP 15.4 mmol/L (8-16); BILIRUBIN - TOTAL 0.4 mg/dL (0.2-1.3); CREATININE - SERUM 1.1 mg/dL (0.6-1.3); POTASSIUM - SERUM 4.4 mmol/L (3.5-5.1); PROTEIN - SERUM 6.6 g/dL (6.4-8.2)
--- NOTE | 2018-07-05 07:00 | NUR ---
INITIAL ROUNDING ON THE PATIENT, HE IS RESTING IN BED, DENIES PAIN AT THIS TIME, SPOUSE AT BEDSIDE, NON SKID SOCKS PROVIDED AT THIS TIME. PATIENT UP TO THE SIDE OF THE BED FOR ASSESSMENT. STEADY GAIT NOTED.
[2018-07-05 07:30] VITALS: BP 146/70
[2018-07-05] MEDS ORDERED: LEVOFLOXACIN500 MG PO (14:22)
--- NOTE | 2018-07-05 15:17 | NUR ---
REMOVED IV FROM THE RIGHT FOREARM, CATH TIP IN TACT.
--- NOTE | 2018-07-06 08:52 | MORECARE ---
CASE MANAGEMENT DISCHARGE SUMMARY PATIENT: TRINIDAD SOSA UNIT: [id number] ADM DATE: 07/03/18 AGE: 72 : 43 SEX: M ROOM/BED: D.1205 AUTHOR: MARCEL,DOC PHYSICIAN: REFERRING PHYSICIAN: SANGEETHA CARTER MD DATE OF SERVICE: 07/06/18 Discharge Plan Patient Name: TRINIDAD SOSA Facility: [facility]:[place] : 1945 Planned Disposition: Home Anticipated Discharge Date: Discharge Date: 07/05/2018 Expected LOS: Initial Reviewer: [email or web address] Initial Review Date: 07/04/2018 Generated: 07/06/18 9:52 am Comments DCP- Discharge Planning Updated by [email or web address]: Yoly Paul on 07/04/18 6:[address] Patient Name: TRINIDAD SOSA Admission Status: ER Accout number: [id number] Admission Date: 07-03-2018 : 1945 Admission Diagnosis: Attending: SANGEETHA CARTER Current LOS: 1 Anticipated DC Date: Planned Disposition: Home Primary Insurance: MEDICARE A & B Discharge Planning Comments: CM met with patient about discharge planning. CM explained CM role and verbal consent was given to do dc assessment. CM educated on Home Health, DME and rehab services that are available. Patient states hIs discharge plan is to return to home with Fabi and she will drive home at DC. States home environment is a safe discharge. Denies any discharge planning needs at this time.. Has CPAP at home already. CM will continue to follow and assist as needed with discharge planning needs. Forming Acid Dumper: Yoly Paul DCPIA - Discharge Planning Initial Assessment Updated by [email or web address]: Yoly Paul on 07/04/18 7:30 am * Is the patient Alert and Oriented? Yes * How many steps to enter\exit or inside your home? * PCP Juan Manuel Jiang * [facility] [address] * Preadmission Environment Home with Family * ADLs Independent * Equipment CPAP * List name and contact numbers for known caregivers / representatives who currently or will assist patient after discharge: Fabi pts [phone] * Verbal permission to speak to the caregivers and representatives has been obtained from the patient. Yes * Community resources currently utilized None * Please name any agencies selected above. [facility] * Additional services required to return to the preadmission environment? No * Has this patient been hospitalized within the prior 30 days at any hospital? No Last DP export: 07/04/18 6:35 a Patient Name: TRINIDAD SOSA Page 18537 at 0852 All edits/amendments must be made on the electronic document DICTATION DATE: 07/06/18851 LABORER TURKEY FARM: MITRA 07/06/18851 RPT#: [id number] DC DATE:07/05/18 STATUS: DIS IN [facility] [address] [place] [address] END OF REPORT
[2018-07-06 09:14] LABS: IMMUNOGLOBULIN A 118 mg/dL (61-437); IMMUNOGLOBULIN G 893 mg/dL (700-1600); IMMUNOGLOBULIN M 30 mg/dL (15-143)
[2018-07-07 10:15] LABS: IMMUNOGLOBULIN D 1.93 mg/dL (<14.11)
[2018-07-14 03:08] LABS: IMMUNOGLOBULIN E <2 IU/mL (6-495)
[2018-08-05 10:01] VITALS: Ht 172.7 cm; Wt 88.5 kg
== END 2018-07-05 15:17 | disposition home or self-care (01) | DRG 815 ==
LOC: D.ER 09:50 → D.M3 12:45 → D.EDHOLD 12:45 → D.M3 12:52
PROVIDERS: Emergency Medicine; Family Medicine; Internal Medicine Hematology & Oncology; ADMIT Internal Medicine Nephrology; ATTEND Internal Medicine Nephrology
DX: R59.1 Generalized enlarged lymph nodes (principal); C91.10 Chronic lymphocytic leukemia of B-cell type not having achieved remission; R22.1 Localized swelling, mass and lump, neck; J39.2 Other diseases of pharynx; D72.829 Elevated white blood cell count, unspecified; E11.9 Type 2 diabetes mellitus without complications; N28.9 Disorder of kidney and ureter, unspecified; I10 Essential (primary) hypertension; J45.909 Unspecified asthma, uncomplicated

== ENCOUNTER → 2018-11-01 09:26 | Outpatient (CLI) | payer MEDICARE, OTHER ==
[2018-08-05 10:01] VITALS: BMI 29.6
[~2018-11-01 09:26] MED LIST changes: +LEVOFLOXACIN500 MG PO
== END | disposition home or self-care (01) ==
LOC: D.HCCECHO 09:26 → D.HCCARDIO 09:30
PROVIDERS: ATTEND Internal Medicine Cardiovascular Disease
DX: I34.0 Nonrheumatic mitral (valve) insufficiency (principal)

== ENCOUNTER 2018-11-16 16:50 | Emergency (ER) | payer MEDICARE, OTHER ==
[~2018-11-16] VITALS: Ht 172.7 cm; Wt 88.6 kg
[2018-11-16 16:59] VITALS: Ht 172.7 cm; Wt 88.6 kg
[2018-11-16] MEDS ORDERED: GEMFIBROZIL600 MG PO (17:08)
[2018-11-16 17:46] LABS: APTT 26.5 SECONDS (22.8-39.4); INR 1.02 (0.85-1.17); PROTIME 12.9 SECONDS (11.6-15.0)
[2018-11-16 17:47] LABS: HEMATOCRIT 35.5 % (42.0-54.0); HEMOGLOBIN 12.2 g/dL (13.5-17.5); MCH 32.7 pg (26.0-34.0); MCHC 34.4 g/dL (31.0-37.0); MCV 95.2 fL (80.0-100.0); MEAN PLATELET VOLUME 8.7 fL (7.4-10.4); PLATELET COUNT 217 10x3/uL (130-400); RBC 3.73 10x6/uL (4.20-6.10); RDW 14.5 % (11.5-14.5); WBC 30.8 10x3/uL (4.8-10.8)
[2018-11-16 17:54] LABS: ALBUMIN 4.3 g/dL (3.4-5.0); ALKALINE PHOSPHATASE 89 U/L (46-116); ALT (SGPT) 21 U/L (10-68); BILIRUBIN - TOTAL 0.42 mg/dL (0.2-1.3); CALC OSMOLALITY 283 mosm/kg (275-300); CALCIUM 9.8 mg/dL (8.5-10.1); CHLORIDE - SERUM 102 mmol/L (98-107); CREATININE - SERUM 1.4 mg/dL (0.6-1.3); GLUCOSE 165 mg/dL (74-106); POTASSIUM - SERUM 4.7 mmol/L (3.5-5.1); PROTEIN - SERUM 8.2 g/dL (6.4-8.2); SODIUM 137 mmol/L (136-145); UREA NITROGEN 29 mg/dL (7-18); eGFR NON AFRICAN AMERICAN 52 mL/min (90-120)
[2018-11-16 18:05] LABS: MAGNESIUM - SERUM 1.7 mg/dL (1.8-2.4)
[2018-11-16 18:28] LABS: CREATINE KINASE 81 UL (21-232)
[2018-11-16 18:29] LABS: EOSINOPHILS 2 % (0-7); LYMPHOCYTES 82 % (15-50); MONOCYTES 3 % (2-11); NEUTROPHILS 13 % (40-80); PLATELET ESTIMATE NORMAL
[2018-11-16 18:37] LABS: TROPONIN-I < 0.017 ng/mL (0.000-0.060)
[2018-11-16 20:20] VITALS: BP 123/58
== END 2018-11-16 20:20 | disposition home or self-care (01) ==
LOC: D.ER 16:50
PROVIDERS: Family Medicine
DX: F41.0 Panic disorder [episodic paroxysmal anxiety] (principal); E11.9 Type 2 diabetes mellitus without complications; I10 Essential (primary) hypertension; F32.9 Major depressive disorder, single episode, unspecified

== ENCOUNTER 2019-10-25 12:13 | Inpatient (IN) | payer MEDICARE, OTHER ==
[~2019-10-25] VITALS: Ht 172.7 cm; Wt 86.2 kg
[2019-10-25 12:53] VITALS: BP 158/67; BMI 28.9
[2019-10-25 13:10] LABS: ANION GAP 14.3 mmol/L (8-16); CALCIUM 8.7 mg/dL (8.5-10.1); CARBON DIOXIDE 25.3 mmol/L (21.0-32.0); CREATININE - SERUM 1.6 mg/dL (0.6-1.3); POTASSIUM - SERUM 4.6 mmol/L (3.5-5.1)
[2019-10-25 13:17] LABS: ALBUMIN 3.9 g/dL (3.4-5.0); BILIRUBIN - TOTAL 0.39 mg/dL (0.2-1.3)
[2019-10-25 15:06] LABS: HEMATOCRIT 30.8 % (42.0-54.0); MCH 34.1 pg (26.0-34.0); MCHC 32.5 g/dL (31.0-37.0); MCV 105.1 fL (80.0-100.0); RBC 2.93 10x6/uL (4.20-6.10); RDW 15.3 % (11.5-14.5); WBC 28.6 10x3/uL (4.8-10.8)
[2019-10-25 15:24] LABS: PLATELET COUNT 4 10x3/uL (130-400)
[2019-10-25 15:27] LABS: LYMPHOCYTES 94 % (15-50); MONOCYTES 1 % (2-11); NEUTROPHILS 5 % (40-80); PLATELET ESTIMATE DECREASED
--- NOTE | 2019-10-25 15:30 | NUR ---
SHANNAN AWARE OF PT PLT COUNT OF 4, WILL FOLLOW THRU WITH CURRENT ORDERS
[2019-10-25 18:06] VITALS: BP 133/66
[2019-10-25 20:00] VITALS: BP 131/63
[2019-10-26] VITALS: BP 147/69
[2019-10-26 04:00] VITALS: BP 135/64
[2019-10-26 06:27] LABS: HEMOGLOBIN 8.9 g/dL (13.5-17.5); MCH 33.7 pg (26.0-34.0); MCV 102.3 fL (80.0-100.0); RBC 2.64 10x6/uL (4.20-6.10); RDW 14.9 % (11.5-14.5)
[2019-10-26 06:29] LABS: BASOPHILS 0.1 % (0-2); EOSINOPHILS 0 % (0-7); MEAN PLATELET VOLUME 13.7 fL (7.4-10.4); PLATELET COUNT 6 10x3/uL (130-400)
[2019-10-26 06:30] LABS: WBC 39.8 10x3/uL (4.8-10.8)
[2019-10-26 06:35] LABS: ALBUMIN 3.3 g/dL (3.4-5.0); BILIRUBIN - TOTAL 0.42 mg/dL (0.2-1.3); CALCIUM 8.9 mg/dL (8.5-10.1); CARBON DIOXIDE 23.1 mmol/L (21.0-32.0); CREATININE - SERUM 1.4 mg/dL (0.6-1.3); POTASSIUM - SERUM 4.1 mmol/L (3.5-5.1); PROTEIN - SERUM 7.5 g/dL (6.4-8.2)
[2019-10-26 09:00] VITALS: BP 139/66
[2019-10-26 13:13] VITALS: BP 122/64
--- NOTE | 2019-10-26 13:20 | NUR ---
PATIENT VS STABLE. PLATELETS STARTED AT THIS TIME. IV INTACT. NO COMPLAINTS OR SIGNS OF DISTRESS. FAMILY AT BEDSIDE. WILL CONTINUE TO MONITOR. CALL LIGHT WITHIN REACH.
--- NOTE | 2019-10-26 13:43 | NUR ---
PATIENT PLATELETS FINISHED AT THIS TIME. VS STABLE. NO COMPLAINTS OR PROBLEMS. IV INTACT. CALL LIGHT WITHIN REACH. FAMILY AT BEDSIDE.
--- NOTE | 2019-10-26 14:38 | NUR ---
PATIENT UP TO SHOWER.
[2019-10-26 17:17] VITALS: BP 112/52
--- NOTE | 2019-10-26 18:45 | NUR ---
PATIENT UP WALKING AROUND IN ROOM DOING WELL WITH IGIP. NO PROBLEMS OR DISTRESS. IV INTACT. CALL LIGHT WITHINR EACH.
[2019-10-26 20:00] VITALS: BP 167/62
--- NOTE | 2019-10-26 20:00 | NUR ---
ALERT RESTING IN BED, DENIES PAIN OR NEEDS AT THIS TIME, CALL LIGHT IN REACH, SEE SHIFT ASSESSMENT
[2019-10-27] VITALS: BP 130/65
[2019-10-27 04:00] VITALS: BP 118/56
[2019-10-27 05:06] LABS: ALBUMIN 3.1 g/dL (3.4-5.0); ANION GAP 10.8 mmol/L (8-16); BILIRUBIN - TOTAL 0.25 mg/dL (0.2-1.3); CALCIUM 8.4 mg/dL (8.5-10.1); CARBON DIOXIDE 25.1 mmol/L (21.0-32.0); CREATININE - SERUM 1.7 mg/dL (0.6-1.3); POTASSIUM - SERUM 3.9 mmol/L (3.5-5.1); PROTEIN - SERUM 7.5 g/dL (6.4-8.2)
[2019-10-27 05:27] LABS: HEMATOCRIT 24.8 % (42.0-54.0); MCH 33.5 pg (26.0-34.0); MCHC 32.3 g/dL (31.0-37.0); MCV 103.8 fL (80.0-100.0); MEAN PLATELET VOLUME 11.2 fL (7.4-10.4); RBC 2.39 10x6/uL (4.20-6.10); RDW 15.1 % (11.5-14.5); WBC 44.7 10x3/uL (4.8-10.8)
[2019-10-27 05:28] LABS: PLATELET COUNT 36 10x3/uL (130-400)
[2019-10-27 09:45] VITALS: BP 120/62
[2019-10-27 11:49] LABS: ANISOCYTOSIS OCC; LYMPHOCYTES 69 % (15-50); MONOCYTES 13 % (2-11); NEUTROPHILS 17 % (40-80); PLATELET ESTIMATE DECREASED
[2019-10-27 11:50] LABS: ROULEAUX OCC
[2019-10-27 12:54] VITALS: BP 129/55
[2019-10-27 17:35] VITALS: BP 110/47
[2019-10-27 22:04] VITALS: BP 132/58
--- NOTE | 2019-10-28 | NUR ---
SUPINE IN BED, A&0 X 4. DENIES PAIN/DISCOMFORT. CTM.
[2019-10-28 03:09] VITALS: BP 115/54
--- NOTE | 2019-10-28 03:54 | NUR ---
I have reviewed this patient and I concur with the Shift Assessment completed by the Licensed Practical Nurse today this shift.
[2019-10-28 04:00] VITALS: BP 146/64
[2019-10-28 05:28] LABS: HEMATOCRIT 24.3 % (42.0-54.0); HEMOGLOBIN 7.9 g/dL (13.5-17.5); MCH 33.9 pg (26.0-34.0); MCHC 32.5 g/dL (31.0-37.0); MCV 104.3 fL (80.0-100.0); RBC 2.33 10x6/uL (4.20-6.10); RDW 15.4 % (11.5-14.5); WBC 42.3 10x3/uL (4.8-10.8)
[2019-10-28 05:29] LABS: MEAN PLATELET VOLUME 12.2 fL (7.4-10.4); PLATELET COUNT 37 10x3/uL (130-400)
[2019-10-28 05:40] LABS: ALBUMIN 2.8 g/dL (3.4-5.0); ANION GAP 15.2 mmol/L (8-16); BILIRUBIN - TOTAL 0.34 mg/dL (0.2-1.3); CALCIUM 8.3 mg/dL (8.5-10.1); CARBON DIOXIDE 21.6 mmol/L (21.0-32.0); CREATININE - SERUM 1.6 mg/dL (0.6-1.3); POTASSIUM - SERUM 3.8 mmol/L (3.5-5.1); PROTEIN - SERUM 7.6 g/dL (6.4-8.2)
[2019-10-28 06:01] LABS: ANISOCYTOSIS OCC; EOSINOPHILS 1 % (0-7); LYMPHOCYTES 78 % (15-50); MONOCYTES 9 % (2-11); NEUTROPHILS 12 % (40-80); PLATELET ESTIMATE DECREASED; ROULEAUX OCC
--- NOTE | 2019-10-28 09:35 | NUR ---
PT ALERT AND ORIENTED X4 UPON ENTERING. RECLINED IN BED WATCHING TABLET, FAMILY AT BEDSIDE. ADMINISTERED MEDICATION, NO DIFFICULTIES. ASSESSMENT PERFORMED AT THIS TIME. RESTING COMFORTABLY, DENIES ANY NEEDS. BED IN LOWEST POSITION, BED RAILS X2, CALL LIGHT WITHIN REACH. WILL CONTINUE TO MONITOR.
[2019-10-28 10:26] VITALS: BP 115/51
--- NOTE | 2019-10-28 11:59 | NUR ---
ADMINISTERED 8 UNITS INSULIN PER SLIDING SCALE. PT GOING FOR A WALK WITH FAMILY MEMBER. DENIES ANY NEEDS. WILL CONTINUE TO MONITOR.
--- NOTE | 2019-10-28 13:10 | NUR ---
I have reviewed this patient and I concur with the Shift Assessment completed by the Licensed Practical Nurse today this shift.
[2019-10-28 14:48] VITALS: BP 108/62
--- NOTE | 2019-10-28 15:03 | NUR ---
ADMINISTERED MEDICATION, NO DIFFICULTIES. PT BACK IN BED FROM SHOWER, FAMILY AT BEDSIDE. DENIES ANY NEEDS. WILL CONTINUE TO MONITOR.
[2019-10-28 17:35] VITALS: BP 155/72
--- NOTE | 2019-10-28 21:25 | NUR ---
20G IV STARTED TO RIGHT FOREARM, 1ST ATTEMMPT. PT VERBALIZED UNDERSTANDING OF NEED FOR PLATELETS. PLATELETS VERIFIED WITH PB MCDONALD. VS STABLE PRIOR TO ADMIN. NO VS S/SX OF DISTRESS WHILE INFUSING. PT VERBALIZES NO ISSUES OR NEEDS AT THIS TIME, CTM.
[2019-10-28 22:21] VITALS: BP 110/54
[2019-10-29] VITALS (7 sets, daily range): BP systolic 122–166; BP diastolic 54–78
--- NOTE | 2019-10-29 02:31 | NUR ---
I have reviewed this patient and I concur with the Shift Assessment completed by the Licensed Practical Nurse today this shift.
[2019-10-29 08:07] LABS: BASOPHILS 0.1 % (0-2); EOSINOPHILS 0 % (0-7); HEMATOCRIT 24.4 % (42.0-54.0); HEMOGLOBIN 7.9 g/dL (13.5-17.5); MCH 33.6 pg (26.0-34.0); MCHC 32.4 g/dL (31.0-37.0); MCV 103.8 fL (80.0-100.0); MEAN PLATELET VOLUME 10.4 fL (7.4-10.4); PLATELET COUNT 113 10x3/uL (130-400); RBC 2.35 10x6/uL (4.20-6.10); RDW 15.5 % (11.5-14.5); WBC 36.3 10x3/uL (4.8-10.8)
[2019-10-29 08:41] LABS: ALBUMIN 2.8 g/dL (3.4-5.0); ANION GAP 12.3 mmol/L (8-16); BILIRUBIN - TOTAL 0.36 mg/dL (0.2-1.3); CALCIUM 8.3 mg/dL (8.5-10.1); CARBON DIOXIDE 26.9 mmol/L (21.0-32.0); CREATININE - SERUM 1.5 mg/dL (0.6-1.3); PROTEIN - SERUM 7.6 g/dL (6.4-8.2)
[2019-10-29 08:44] LABS: POTASSIUM - SERUM 3.2 mmol/L (3.5-5.1)
--- NOTE | 2019-10-29 08:50 | NUR ---
called r.t. for duoneb treatment and they stated they will be up here in a minute.
[2019-10-29 11:54] LABS: CKMB 1.5 U/L (0.0-3.6); CREATINE KINASE 50 UL (21-232)
--- NOTE | 2019-10-29 12:27 | NUR ---
PT UP WALKING IN HALLWAY USING WALKER AND ACCOMPANIED BY SPOUSE.
--- NOTE | 2019-10-29 12:34 | NUR ---
LAB CALLED FOR CRITICAL RESULT TROPONIN 0.090. STATED THIS TI SHANNAN FONSECA SHE STATES TO PAGE DR. PALOMO. I VERBALIZED UNDERSTANDING. DR. PALOMO PAGED.
--- NOTE | 2019-10-29 12:38 | NUR ---
CALLED [employer] ARTISTIC DIRECTOR FOR TELEMTRY MONITOR FOR ELEVATED TROPONIN. SHE STATES SHE WILL GET ONE READY. I VERBALIZED UNDERSTANDING.
--- NOTE | 2019-10-29 13:57 | NUR ---
SPOKE WITH DR. PALOMO ABOUT TROPNIN 0.090. SHE STATES IF NEXT LAB LEVEL GOES UP TO CONSULT CARDIOLOGY AND TO ORDER NITRO SL TAB PRN AND SHE WILL PUT IN THE REST OF THE ORDERS. I VERBALIZED UNDERSTANDING.
--- NOTE | 2019-10-29 15:34 | NUR ---
PT SR ON TELEMETRY.
[2019-10-29 16:15] LABS: CKMB 1.6 U/L (0.0-3.6); CREATINE KINASE 61 UL (21-232)
[2019-10-29 16:21] LABS: TROPONIN-I 0.174 ng/mL (0.000-0.060)
--- NOTE | 2019-10-29 17:45 | NUR ---
RN TO HANG AND INFUSE OCTAGAM.
--- NOTE | 2019-10-29 19:25 | NUR ---
PATIENT RESTING IN BED WITH NO S/S OF DISTRESS AND DENIES NEEDS AT THIS TIME. CHANGED INFUSION RATE OF IVIG. BED IN LOWEST POSITION AND CALL LIGHT WITHIN REACH. ENCOURAGED THE PATIENT TO CALL IF HE HAS NEEDS. WILL CONTINUE TO MONITOR.
[2019-10-29 20:42] LABS: CKMB 1.8 U/L (0.0-3.6); CREATINE KINASE 68 UL (21-232); POTASSIUM - SERUM 3.3 mmol/L (3.5-5.1)
[2019-10-29 20:43] LABS: TROPONIN-I 0.432 ng/mL (0.000-0.060)
[2019-10-30] VITALS (7 sets, daily range): BP systolic 126–199; BP diastolic 53–86
[2019-10-30 06:02] LABS: ALBUMIN 2.6 g/dL (3.4-5.0); BILIRUBIN - TOTAL 0.45 mg/dL (0.2-1.3); CALCIUM 8.3 mg/dL (8.5-10.1); CARBON DIOXIDE 26.4 mmol/L (21.0-32.0); CREATININE - SERUM 1.5 mg/dL (0.6-1.3); POTASSIUM - SERUM 3.4 mmol/L (3.5-5.1); PROTEIN - SERUM 7.8 g/dL (6.4-8.2)
[2019-10-30 06:16] LABS: HEMATOCRIT 22.5 % (42.0-54.0); HEMOGLOBIN 7.4 g/dL (13.5-17.5); MCH 33.8 pg (26.0-34.0); MCHC 32.9 g/dL (31.0-37.0); MCV 102.7 fL (80.0-100.0); MEAN PLATELET VOLUME 10.4 fL (7.4-10.4); PLATELET COUNT 97 10x3/uL (130-400); RBC 2.19 10x6/uL (4.20-6.10); RDW 15.2 % (11.5-14.5); WBC 34.7 10x3/uL (4.8-10.8)
--- NOTE | 2019-10-30 07:00 | NUR ---
RECEIVED PATIENT FROM RADHA GRUBBS. A&O RESTING IN BED WITH EYES OPEN. NO C/O PAIN. NO S/S OF ACUTE DISTRESS NOTED. CALL LIGHT IN REACH. WILL CONTINUE TO MONITOR.
[2019-10-30 07:08] LABS: PLATELET ESTIMATE NORMAL
[2019-10-30 07:09] LABS: ROULEAUX OCC
[2019-10-30 07:16] LABS: LYMPHOCYTES 88 % (15-50); NEUTROPHILS 12 % (40-80)
[2019-10-30 07:17] LABS: ANISOCYTOSIS OCC
--- NOTE | 2019-10-30 14:55 | NUR ---
I have reviewed this patient and I concur with the Shift Assessment completed by the Licensed Practical Nurse today this shift.
--- NOTE | 2019-10-30 18:26 | NUR ---
A&O SITTING UP IN CHAIR. IV TO RIGHT FOREARM INFILTRATED DURING BLOOD TRANSFUSION. HARRY DEL RIO RESITED TO UPPER RIGHT FOREARM, 20 GA X1 STICK WITH GOOD BLOOD RETURN. 1ST UNIT OF PRBC INFUSING AT THIS TIME. DENIES ANY NEEDS AT THIS TIME. VITALS STABLE. CALL LIGHT IN REACH. WILL CONTINUE TO MONITOR.
--- NOTE | 2019-10-30 19:29 | NUR ---
PATIENT SITTING UP IN THE CHAIR AND DENIES NEEDS AT THIS TIME. BLOOD RUNNING TO IV. NO REDNESS, TENDERNESS OR SWELLING NOTED. PATIENT DENIES NEEDS AT THIS TIME. ENCOURAGED THE PATIENT TO CALL IF HE HAS NEEDS. WILL CONTINUE TO MONITOR.
--- NOTE | 2019-10-30 23:00 | NUR ---
BEGAN TRANSFUSING SECOND UNIT PRBC'S
[2019-10-31 03:18] VITALS: BP 183/79
[2019-10-31 08:55] VITALS: BP 172/83
[2019-10-31 09:03] LABS: HEMATOCRIT 32.6 % (42.0-54.0); HEMOGLOBIN 10.9 g/dL (13.5-17.5); MCH 32.7 pg (26.0-34.0); MCHC 33.4 g/dL (31.0-37.0); MCV 97.9 fL (80.0-100.0); MEAN PLATELET VOLUME 10.4 fL (7.4-10.4); PLATELET COUNT 88 10x3/uL (130-400); RBC 3.33 10x6/uL (4.20-6.10); RDW 17.7 % (11.5-14.5); WBC 38.6 10x3/uL (4.8-10.8)
[2019-10-31 12:36] LABS: LYMPHOCYTES 89 % (15-50); MONOCYTES 3 % (2-11); NEUTROPHILS 5 % (40-80); PLATELET ESTIMATE DECREASED; ROULEAUX OCC; SMUDGE CELLS 1+
[2019-10-31 13:14] LABS: CALCIUM 8.8 mg/dL (8.5-10.1); CARBON DIOXIDE 31.9 mmol/L (21.0-32.0); CREATININE - SERUM 1.4 mg/dL (0.6-1.3)
[2019-10-31 13:19] VITALS: BP 166/74
[2019-10-31 13:19] LABS: POTASSIUM - SERUM 2.9 mmol/L (3.5-5.1)
[2019-10-31 14:19] VITALS: Ht 172.7 cm; Wt 86.2 kg
[2019-10-31 17:06] VITALS: BP 180/81
--- NOTE | 2019-10-31 19:30 | NUR ---
A&O X 4. HARD OF HEARING. AMBULATES INDEPENDENTLY. DENIES NEEDS AT THIS TIME, CTM.
[2019-10-31 20:00] VITALS: BP 158/76
--- NOTE | 2019-10-31 23:53 | NUR ---
I have reviewed this patient and I concur with the Shift Assessment completed by the Licensed Practical Nurse today this shift.
[2019-11-01] VITALS: BP 170/67
[2019-11-01 04:00] VITALS: BP 182/79
[2019-11-01 05:18] LABS: ALBUMIN 2.9 g/dL (3.4-5.0); BILIRUBIN - TOTAL 0.81 mg/dL (0.2-1.3); CARBON DIOXIDE 29.5 mmol/L (21.0-32.0); CREATININE - SERUM 1.4 mg/dL (0.6-1.3); PROTEIN - SERUM 8.5 g/dL (6.4-8.2)
[2019-11-01 05:32] LABS: POTASSIUM - SERUM 3.5 mmol/L (3.5-5.1)
[2019-11-01 05:44] LABS: HEMATOCRIT 34.6 % (42.0-54.0); HEMOGLOBIN 11.8 g/dL (13.5-17.5); MCH 33.4 pg (26.0-34.0); MCHC 34.1 g/dL (31.0-37.0); MEAN PLATELET VOLUME 10.5 fL (7.4-10.4); PLATELET COUNT 82 10x3/uL (130-400); RBC 3.53 10x6/uL (4.20-6.10); RDW 17.3 % (11.5-14.5)
--- NOTE | 2019-11-01 06:15 | NUR ---
IV OUT, CATH INTACT. 20G IV RESITED TO RIGHT AC, 2ND ATTEMPT. TOLERATED WELL, CTM. AT BEDSIDE.
[2019-11-01 06:44] LABS: LYMPHOCYTES 84 % (15-50); MONOCYTES 1 % (2-11); NEUTROPHILS 13 % (40-80); PLATELET ESTIMATE DECREASED; SMUDGE CELLS 1+
--- NOTE | 2019-11-01 07:15 | NUR ---
RECEIVE BEDSIDE SHIFT REPORT. RESTING IN BED WITH EYES CLOSED. NO SIGNS OF DISTRESS. FAMILY AT BEDSIDE. WILL CONTINUE PLAN OF CARE AND SAFETY PRECAUTIONS.
--- NOTE | 2019-11-01 09:11 | EC ---
PATIENT:TRINIDAD SOSA DATE OF SERVICE: 10/25/19 SEX: M MEDICAL RECORD: [id number] DATE OF : 41 LOCATION:[facility] AGE OF PATIENT: 73 ADMISSION DATE: 10/25/19 REFERRING PHYSICIAN: INTERPRETING PHYSICIAN: SANTI CAT MD ECHOCARDIOGRAM REPORT ECHO CHARGES 4 ECHO COMPLETE Date: 10/30/19 CLINICAL DIAGNOSIS: NON-Q ME ECHOCARDIOGRAPHIC MEASUREMENTS (adult normal given) AC root (d.<3.7cm) 3.4 cm LV Septum d (<1.2 cm> 0.8 cm Valve Excursion 2.0 cm LV Septum (systole) 1.7 cm Left Atria (s.<4.0cm> 3.7 cm LVPW d(<1.2cm) 1.0 cm RV (d.<2.3cm) 3.2 cm LVPW (sytole) 1.3 cm LV diastole(<5.6CM) 5.1 cm MV E-F(>70mm/sec) cm LV systole 3.4 cm LVOT Diameter 1.7 cm MV exc.(>10mm) 1.5 cm Est.ejection fraction (50-75%) % DOPPLER: LVIT cm/sec A 81 cm/sec E 93 cm/sec LA cm/sec RVSP 45.4 mmHg LVOT 110 cm/sec AOP1/2T m/s Asc. Ao 123 cm/sec RVOT 79 cm/sec RA cm/sec PA 77 cm/sec AV Gradient Peak 6.1 mmHg AV Mean 2.9 mmHg AV Area 2.1 cm MV Gradient Peak 4.5 mmHg MV Mean 2.4 mmHg MV Area cm COMMENTS: Crab Steamer: Andrei GRAY Loading Dock Hand: 2 Dr. Prasad TAPE# PACS Pericardial Effusion N DATE OF SERVICE: Adequate 2D, color-flow imaging, spectral Doppler, and M-Mode No LVH. LV internal dimension is normal. Wall motion is normal. EF is greater than or equal to 55%. Aortic valve is tricuspid. No evidence of stenosis by Doppler interrogation. Left atrium normal at 3.7 cm. Mitral valve shows no prolapse. Trivial MR. Right-sided chambers are grossly normal. Mild TR. TRANSINT:[id number] Voice Confirmation ID: [id number] DOCUMENT ID: [id number] ECHOCARDIOGRAM REPORT [id number] TRINIDAD SOSA GREGORY A MD at 0911 CC: [id number] DICTATION DATE: 10/31/19 1200 ELECTRICAL SOLDERER: 10/31/19 1513 ADM IN [place] [id number] [place] [id number]
[2019-11-01 09:18] VITALS: BP 169/79
[2019-11-01 12:27] VITALS: BP 154/82
[2019-11-01 16:25] LABS: BASOPHILS 0 % (0-2); EOSINOPHILS 0 % (0-7); HEMATOCRIT 37.1 % (42.0-54.0); HEMOGLOBIN 11.9 g/dL (13.5-17.5); IMMATURE GRANULOCYTES 0.4 % (0-5); LYMPHOCYTES 84.8 % (15-50); MCH 32.6 pg (26.0-34.0); MCHC 32.1 g/dL (31.0-37.0); MCV 101.6 fL (80.0-100.0); MEAN PLATELET VOLUME 11.3 fL (7.4-10.4); MONOCYTES 1.4 % (2-11); NEUTROPHILS 13.4 % (40-80); PLATELET COUNT 91 10x3/uL (130-400); RBC 3.65 10x6/uL (4.20-6.10); RDW 17.1 % (11.5-14.5); WBC 26.2 10x3/uL (4.8-10.8)
[2019-11-01 18:01] VITALS: BP 109/57
[2019-11-01 20:00] VITALS: BP 160/76
--- NOTE | 2019-11-01 22:00 | NUR ---
A&O X 4, UP AD ASHLEY. REPORTS HE'S GETTING READY TO GO TO BED, REMINDED PT TO USE CPAP. CTM.
[2019-11-02] VITALS: BP 160/75
[2019-11-02 04:00] VITALS: BP 171/79
--- NOTE | 2019-11-02 04:18 | NUR ---
I have reviewed this patient and I concur with the Shift Assessment completed by the Licensed Practical Nurse today this shift.
[2019-11-02 06:47] LABS: ALBUMIN 2.8 g/dL (3.4-5.0); ANION GAP 13.6 mmol/L (8-16); BILIRUBIN - TOTAL 0.62 mg/dL (0.2-1.3); CALCIUM 9.1 mg/dL (8.5-10.1); CARBON DIOXIDE 28.5 mmol/L (21.0-32.0); CREATININE - SERUM 1.4 mg/dL (0.6-1.3); MAGNESIUM - SERUM 1.7 mg/dL (1.8-2.4); POTASSIUM - SERUM 4.1 mmol/L (3.5-5.1); PROTEIN - SERUM 7.5 g/dL (6.4-8.2)
[2019-11-02 07:15] LABS: BASOPHILS 0.1 % (0-2); EOSINOPHILS 0 % (0-7); HEMOGLOBIN 11.3 g/dL (13.5-17.5); MCH 32.7 pg (26.0-34.0); MCHC 33.2 g/dL (31.0-37.0); MCV 98.3 fL (80.0-100.0); MEAN PLATELET VOLUME 10.5 fL (7.4-10.4); PLATELET COUNT 71 10x3/uL (130-400); RBC 3.46 10x6/uL (4.20-6.10); RDW 16.7 % (11.5-14.5); WBC 43.2 10x3/uL (4.8-10.8)
--- NOTE | 2019-11-02 08:20 | NUR ---
PT AWAKE AND ALERT LAYING ON RIGHT SIDE. GISELLE IN ROOM. UPDATED ON LAB VALUES. NO CO OF PAIN. NO FURTHER NEEDS AT THIS TIME. CL IN REACH. WCTM
[2019-11-02 08:41] VITALS: BP 158/81
--- NOTE | 2019-11-02 08:49 | MORECARE ---
CASE MANAGEMENT DISCHARGE SUMMARY PATIENT: TRINIDAD SOSA UNIT: [id number] ADM DATE: 10/25/19 AGE: 73 : 43 SEX: M ROOM/BED: D.2211 AUTHOR: MARCEL,DOC PHYSICIAN: REFERRING PHYSICIAN: RJ PALOMO MD DATE OF SERVICE: 11/02/19 Discharge Plan Patient Name: TRINIDAD SOSA Facility: [facility]:[place] : 1945 Planned Disposition: Home or Self Care Anticipated Discharge Date: Discharge Date: Expected LOS: Initial Reviewer: [email or web address] Initial Review Date: 10/25/2019 Generated: 11/02/19 9:49 am DCPIA - Discharge Planning Initial Assessment Updated by [email or web address]: Rashida Unger on 11/02/19 8:48 am * Is the patient Alert and Oriented? Yes * How many steps to enter\exit or inside your home? 3W/RAILS * PCP CARLA * [facility] * Preadmission Environment Home with Family * ADLs Independent * Equipment CPAP * List name and contact numbers for known caregivers / representatives who currently or will assist patient after discharge: GISELLE SOSA [phone] * Verbal permission to speak to the caregivers and representatives has been obtained from the patient. N/A * Additional services required to return to the preadmission environment? No * Can the patient safely return to the preadmission environment? Yes * Has this patient been hospitalized within the prior 30 days at any hospital? No Coverage Notice Reviewer: [email or web address] Unger Notice Issued Date-Time: 11/02/2019 8:35 Notice Type: IM Discharge Notice Notice Delivered To: Family Member Relationship to Patient: Spouse Physician Extender Name: GISELLE Delivery Method: HAND - Hand Delivered Julee Days: Prior Verbal Notification: Recipient Understood Notice: Yes Recipient Signature: Yes Med Rec Note Co-signed by Attending: Coverage Notice Comment: IMM SERVED AND EXPLAINED Reviewer: [email or web address] Unger Notice Issued Date-Time: 11/02/2019 8:35 Notice Type: Patient Choice Letter Notice Delivered To: Family Member Relationship to Patient: Spouse Physician Extender Name: GISELLE Delivery Method: HAND - Hand Delivered Julee Days: Prior Verbal Notification: Recipient Understood Notice: Yes Recipient Signature: Yes Med Rec Note Co-signed by Attending: Coverage Notice Comment: [facility] Patient Name: TRINIDAD SOSA Page 45874 at 0849 All edits/amendments must be made on the electronic document DICTATION DATE: 11/02/19848 ELDERLY SITTER: MITRA 11/02/19848 RPT#: [id number] DC DATE: STATUS: ADM IN [facility] [address] [place] [address] END OF REPORT
--- NOTE | 2019-11-02 08:56 | MORECARE ---
CASE MANAGEMENT DISCHARGE SUMMARY PATIENT: TRINIDAD SOSA UNIT: [id number] ADM DATE: 10/25/19 AGE: 73 : 43 SEX: M ROOM/BED: D.2211 AUTHOR: KAY ROD PHYSICIAN: REFERRING PHYSICIAN: JOLENE PALOMO MD DATE OF SERVICE: 11/02/19 Discharge Plan Patient Name: TRINIDAD SOSA Facility: [facility]:[place] : 1945 Planned Disposition: Home or Self Care Anticipated Discharge Date: Discharge Date: Expected LOS: Initial Reviewer: [email or web address] Initial Review Date: 10/25/2019 Generated: 11/02/19 9:56 am Comments DCP- Discharge Planning Updated by [email or web address]: Rashida Unger on 11/02/19 7:[address] Patient Name: TRINIDAD SOSA Admission Status: Elective Accout number: [id number] Admission Date: 10-25-2019 : 1945 Admission Diagnosis:IMMUNE THROMBOCYTOPENIC PURPURA Attending: Jolene Palomo Current LOS: 8 Anticipated DC Date: Planned Disposition: Home or Self Care Primary Insurance: MEDICARE A & B Discharge Planning Comments: CM met with patient to complete initial dc planning assessment. CM educated patient on the CM role and verbal consent given by patient to complete assessment. Patient lives at home with his where he is independent with his care. At discharge patient plans to return home and feels this is a safe discharge. CM discussed availability of home health, rehab services, and medical equipment. He uses a cpap machine from [facility]. [facility] served and explained. Patient denied known discharge needs at this time. CM will continue to follow and will assist as needed with dc plans/needs. Drill Press Set Up Operator: Rashida Unger DCPIA - Discharge Planning Initial Assessment Updated by [email or web address]: Rashida Unger on 11/02/19 8:48 am * Is the patient Alert and Oriented? Yes * How many steps to enter\exit or inside your home? 3W/RAILS * PCP CARLA * [facility] * Preadmission Environment Home with Family * ADLs Independent * Equipment CPAP * List name and contact numbers for known caregivers / representatives who currently or will assist patient after discharge: GISELLE SOSA [phone] * Verbal permission to speak to the caregivers and representatives has been obtained from the patient. N/A * Additional services required to return to the preadmission environment? No * Can the patient safely return to the preadmission environment? Yes * Has this patient been hospitalized within the prior 30 days at any hospital? No Coverage Notice Reviewer: [id number] Mitchell Unger Notice Issued Date-Time: 11/02/2019 8:35 Notice Type: IM Discharge Notice Notice Delivered To: Family Member Relationship to Patient: Spouse Gasket Maker Name: GISELLE Delivery Method: HAND - Hand Delivered Julee Days: Prior Verbal Notification: Recipient Understood Notice: Yes Recipient Signature: Yes Med Rec Note Co-signed by Attending: Coverage Notice Comment: IMM SERVED AND EXPLAINED Reviewer: [id number] Mitchell Unger Notice Issued Date-Time: 11/02/2019 8:35 Notice Type: Patient Choice Letter Notice Delivered To: Family Member Relationship to Patient: Spouse Gasket Maker Name: GISELLE Delivery Method: HAND - Hand Delivered Julee Days: Prior Verbal Notification: Recipient Understood Notice: Yes Recipient Signature: Yes Med Rec Note Co-signed by Attending: Coverage Notice Comment: [facility] PATIENT Last DP export: 11/02/19 7:49 a Patient Name: TRINIDAD SOSA Page 43799 at 0856 All edits/amendments must be made on the electronic document DICTATION DATE: 11/02/19855 CIAIO COUNTER MOLDER: MITRA 11/02/19 0856 RPT#: [id number] DC DATE: STATUS: ADM IN [facility] [address] [place] [address] END OF REPORT
[2019-11-02] MEDS ORDERED: IPRAT-ALBUT 0.5-3 ML UPD (09:29)
[2019-11-02] MEDS ORDERED: LISINOPRIL2.5 MG PO (09:29)
[2019-11-02] MEDS ORDERED: NITROQUICK0.4 MG SL (09:30)
[2019-11-02] MEDS ORDERED: PREDNISONE20 MG PO (09:31)
--- NOTE | 2019-11-02 11:03 | NUR ---
GISELLE IN ROOM. PT MAG REPLACED WITH 2 G RUNNING OVER 2 HOURS. NO NEEDS AT THIS TIME. CL IN REACH. WCTM
[2019-11-02 12:27] VITALS: BP 140/75
[2019-11-02 13:15] LABS: CKMB 0.6 U/L (0.0-3.6); CREATINE KINASE 22 UL (21-232)
--- NOTE | 2019-11-02 15:30 | NUR ---
PT AND GISELLE UP WALKING IN THE [place]. CL IN REACH. WCTM
[2019-11-02 17:59] VITALS: BP 128/69
--- NOTE | 2019-11-02 18:04 | MORECARE ---
CASE MANAGEMENT DISCHARGE SUMMARY PATIENT: TRINIDAD SOSA UNIT: [id number] ADM DATE: 10/25/19 AGE: 73 : 43 SEX: M ROOM/BED: D.2211 AUTHOR: KAY ROD PHYSICIAN: REFERRING PHYSICIAN: JOLENE PALOMO MD DATE OF SERVICE: 11/02/19 Discharge Plan Patient Name: TRINIDAD SOSA Facility: [facility]:[place] : 1945 Planned Disposition: Home or Self Care Anticipated Discharge Date: Discharge Date: Expected LOS: Initial Reviewer: [email or web address] Initial Review Date: 10/25/2019 Generated: 11/02/19 7:03 pm Comments DCP- Discharge Planning Updated by [email or web address]: Sahra Tello on 11/02/19 5:[address] Patient Name: TRINIDAD SOSA Admission Status: Elective Accout number: [id number] Admission Date: 10-25-2019 : 1945 Admission Diagnosis:IMMUNE THROMBOCYTOPENIC PURPURA Attending: Jolene Palomo Current LOS: 8 Anticipated DC Date: Planned Disposition: Home or Self Care Primary Insurance: MEDICARE A & B Discharge Planning Comments: SPOKE WITH DR. PALOMO ON THE PHONE, SHE WOULD LIKE PATIENT TO HAVE HOME HEALTH FOR DIABETIC TEACHING. I CALLED AND SPOKE WITH PATIENT'S AND THEY REQUESTED [facility]. I HAVE FAXED REFERRAL TO [facility]. EXPECTING CALL BACK TOMORROW IT IS END OF OFFICE HOURS. [employer] Line Worker: Sahra Tello DCP- Discharge Planning Updated by [email or web address]: Rashida Unger on 11/02/19 7:[address] Patient Name: TRINIDAD SOSA Admission Status: Elective Accout number: [id number] Admission Date: 10-25-2019 : 1945 Admission Diagnosis:IMMUNE THROMBOCYTOPENIC PURPURA Attending: Jolene Palomo Current LOS: 8 Anticipated DC Date: Planned Disposition: Home or Self Care Primary Insurance: MEDICARE A & B Discharge Planning Comments: CM met with patient to complete initial dc planning assessment. CM educated patient on the CM role and verbal consent given by patient to complete assessment. Patient lives at home with his where he is independent with his care. At discharge patient plans to return home and feels this is a safe discharge. CM discussed availability of home health, rehab services, and medical equipment. He uses a cpap machine from [facility]. IMM served and explained. Patient denied known discharge needs at this time. CM will continue to follow and will assist as needed with dc plans/needs. [employer] Line Worker: Rashida Unger DCPIA - Discharge Planning Initial Assessment Updated by [email or web address]: Rashida Unger on 11/02/19 8:48 am * Is the patient Alert and Oriented? Yes * How many steps to enter\exit or inside your home? 3W/RAILS * PCP CARLA * [facility]acy [facility] * Preadmission Environment Home with Family * ADLs Independent * Equipment CPAP * List name and contact numbers for known caregivers / representatives who currently or will assist patient after discharge: GISELLE SOSA [phone] * Verbal permission to speak to the caregivers and representatives has been obtained from the patient. N/A * Additional services required to return to the preadmission environment? No * Can the patient safely return to the preadmission environment? Yes * Has this patient been hospitalized within the prior 30 days at any hospital? No External Providers External Provider[facility] Next Contact Date: Service Request Date: Service Type: Resolution: Reviewer: Comments: Coverage Notice Reviewer: [id number] Mitchell Unger Notice Issued Date-Time: 11/02/2019 8:35 Notice Type: IM Discharge Notice Notice Delivered To: Family Member Relationship to Patient: Spouse Partner Marketing Manager Name: GISELLE Delivery Method: HAND - Hand Delivered Julee Days: Prior Verbal Notification: Recipient Understood Notice: Yes Recipient Signature: Yes Med Rec Note Co-signed by Attending: Coverage Notice Comment: IMM SERVED AND EXPLAINED Reviewer: [id number] Mitchell Unger Notice Issued Date-Time: 11/02/2019 8:35 Notice Type: Patient Choice Letter Notice Delivered To: Family Member Relationship to Patient: Spouse Partner Marketing Manager Name: GISELLE Delivery Method: HAND - Hand Delivered Julee Days: Prior Verbal Notification: Recipient Understood Notice: Yes Recipient Signature: Yes Med Rec Note Co-signed by Attending: Coverage Notice Comment: [facility] Last DP export: 11/02/19 7:56 a Patient Name: TRINIDAD SOSA Page [id number] at 1804 All edits/amendments must be made on the electronic document DICTATION DATE: 11/02/191802 POULTRY SERVICE TECHNICIAN: MITRA 11/02/191802 RPT#: [id number] DC DATE: STATUS: ADM IN [facility] [address] [place] [address] END OF REPORT
[2019-11-03 08:14] LABS: HEPATITIS C ANTIBODY 0.2 S/CO RAT (0.0-0.9)
--- NOTE | 2019-11-03 09:37 | MORECARE ---
CASE MANAGEMENT DISCHARGE SUMMARY PATIENT: TRINIDAD SOSA UNIT: [id number] ADM DATE: 10/25/19 AGE: 73 : 43 SEX: M ROOM/BED: D.2211 AUTHOR: MARCELDOC PHYSICIAN: REFERRING PHYSICIAN: JOLENE PALOMO MD DATE OF SERVICE: 11/03/19 Discharge Plan Patient Name: TRINIDAD SOSA Facility: [facility]:[place] : 1945 Planned Disposition: Home or Self Care Anticipated Discharge Date: Discharge Date: 11/02/2019 Expected LOS: Initial Reviewer: [email or web address] Initial Review Date: 10/25/2019 Generated: 11/03/19 10:36 am Comments DCP- Discharge Planning Updated by [email or web address]: Sahra Tello on 11/02/19 5:[address] Patient Name: TRINIDAD SOSA Admission Status: Elective Accout number: [id number] Admission Date: 10-25-2019 : 1945 Admission Diagnosis:IMMUNE THROMBOCYTOPENIC PURPURA Attending: Jolene Palomo Current LOS: 8 Anticipated DC Date: Planned Disposition: Home or Self Care Primary Insurance: MEDICARE A & B Discharge Planning Comments: SPOKE WITH DR. PALOMO ON THE PHONE, SHE WOULD LIKE PATIENT TO HAVE HOME HEALTH FOR DIABETIC TEACHING. I CALLED AND SPOKE WITH PATIENT'S AND THEY REQUESTED [facility]. I HAVE FAXED REFERRAL TO [facility]. EXPECTING CALL BACK TOMORROW IT IS END OF OFFICE HOURS. Telephone Order Dispatcher: Sahra Tello DCP- Discharge Planning Updated by [id number]: Rashida Unger on 11/02/19 7:[address] Patient Name: TRINIDAD SOSA Admission Status: Elective Accout number: [id number] Admission Date: 10-25-2019 : 1945 Admission Diagnosis:IMMUNE THROMBOCYTOPENIC PURPURA Attending: Jolene Palomo Current LOS: 8 Anticipated DC Date: Planned Disposition: Home or Self Care Primary Insurance: MEDICARE A & B Discharge Planning Comments: CM met with patient to complete initial dc planning assessment. CM educated patient on the CM role and verbal consent given by patient to complete assessment. Patient lives at home with his where he is independent with his care. At discharge patient plans to return home and feels this is a safe discharge. CM discussed availability of home health, rehab services, and medical equipment. He uses a cpap machine from [facility]. IMM served and explained. Patient denied known discharge needs at this time. CM will continue to follow and will assist as needed with dc plans/needs. Telephone Order Dispatcher: Rashida Unger DCPIA - Discharge Planning Initial Assessment Updated by [email or web address]: Rashida Unger on 11/02/19 8:48 am * Is the patient Alert and Oriented? Yes * How many steps to enter\exit or inside your home? 3W/RAILS * PCP CARLA * [facility]acy [facility] * Preadmission Environment Home with Family * ADLs Independent * Equipment CPAP * List name and contact numbers for known caregivers / representatives who currently or will assist patient after discharge: GISELLE SOSA [phone] * Verbal permission to speak to the caregivers and representatives has been obtained from the patient. N/A * Additional services required to return to the preadmission environment? No * Can the patient safely return to the preadmission environment? Yes * Has this patient been hospitalized within the prior 30 days at any hospital? No Coverage Notice Reviewer: [id number] Mitchell Unger Notice Issued Date-Time: 11/02/2019 8:35 Notice Type: IM Discharge Notice Notice Delivered To: Family Member Relationship to Patient: Spouse Golf Club Repairer Name: GISELLE Delivery Method: HAND - Hand Delivered Julee Days: Prior Verbal Notification: Recipient Understood Notice: Yes Recipient Signature: Yes Med Rec Note Co-signed by Attending: Coverage Notice Comment: IMM SERVED AND EXPLAINED Reviewer: [id number] Mitchell Unger Notice Issued Date-Time: 11/02/2019 8:35 Notice Type: Patient Choice Letter Notice Delivered To: Family Member Relationship to Patient: Spouse Golf Club Repairer Name: GISELLE Delivery Method: HAND - Hand Delivered Julee Days: Prior Verbal Notification: Recipient Understood Notice: Yes Recipient Signature: Yes Med Rec Note Co-signed by Attending: Coverage Notice Comment: [facility] Last DP export: 11/02/19 5:04 p Patient Name: TRINIDAD SOSA Page [id number] at 0937 All edits/amendments must be made on the electronic document DICTATION DATE: 11/03/19936 PANEL MAKER: MITRA 11/03/19936 RPT#: [id number] DC DATE:11/02/19 STATUS: DIS IN [facility] [address] [place] [place] [address] END OF REPORT
== END 2019-11-02 18:30 | disposition home health service (06) | DRG 813 ==
LOC: D.MS 12:13
PROVIDERS: Emergency Medicine; Family Medicine; Internal Medicine Cardiovascular Disease; ADMIT Internal Medicine Hematology & Oncology; ATTEND Internal Medicine Hematology & Oncology
DX: D69.3 Immune thrombocytopenic purpura (principal); I21.4 Non-ST elevation (NSTEMI) myocardial infarction; C91.10 Chronic lymphocytic leukemia of B-cell type not having achieved remission; N17.9 Acute kidney failure, unspecified; E78.5 Hyperlipidemia, unspecified; D64.9 Anemia, unspecified; R07.9 Chest pain, unspecified; R42 Dizziness and giddiness; E11.65 Type 2 diabetes mellitus with hyperglycemia; F41.8 Other specified anxiety disorders; G47.33 Obstructive sleep apnea (adult) (pediatric); J45.909 Unspecified asthma, uncomplicated; K21.9 Gastro-esophageal reflux disease without esophagitis; I12.9 Hypertensive chronic kidney disease with stage 1 through stage 4 chronic kidney disease, or unspecified chronic kidney disease; N18.2 Chronic kidney disease, stage 2 (mild); I25.10 Atherosclerotic heart disease of native coronary artery without angina pectoris

== ENCOUNTER 2020-08-07 17:30 | Emergency (ER) | payer MEDICARE, OTHER ==
[~2020-08-07] VITALS: Ht 172.7 cm; Wt 82.3 kg
[~2020-08-07 17:30] MED LIST changes: +IPRAT-ALBUT 0.5-3 ML UPD; +NITROQUICK0.4 MG SL; +PREDNISONE20 MG PO
[2020-08-07 17:40] VITALS: Ht 172.7 cm; Wt 82.3 kg
[2020-08-07 18:15] LABS: HEMATOCRIT 34.6 % (42.0-54.0); HEMOGLOBIN 11.5 g/dL (13.5-17.5); MCH 31.8 pg (26.0-34.0); MCHC 33.3 g/dL (31.0-37.0); MCV 95.3 fL (80.0-100.0); MEAN PLATELET VOLUME 6.8 fL (7.4-10.4); RBC 3.63 10x6/uL (4.20-6.10); RDW 13.5 % (11.5-14.5); WBC 20.9 10x3/uL (4.8-10.8)
[2020-08-07 18:18] LABS: PLATELET COUNT 399 10x3/uL (130-400)
[2020-08-07 18:25] LABS: INR 1.25 (0.85-1.17); PROTIME 14.5 SECONDS (11.6-15.0)
[2020-08-07 18:26] LABS: APTT 31.8 SECONDS (22.8-39.4)
[2020-08-07 18:36] LABS: CALC OSMOLALITY 285 mosm/kg (275-300); CALCIUM 9.9 mg/dL (8.5-10.1); CARBON DIOXIDE 25.5 mmol/L (21.0-32.0); CHLORIDE - SERUM 99 mmol/L (98-107); CREATININE - SERUM 1.5 mg/dL (0.6-1.3); POTASSIUM - SERUM 4.3 mmol/L (3.5-5.1); SODIUM 139 mmol/L (136-145); UREA NITROGEN 31 mg/dL (7-18); eGFR NON AFRICAN AMERICAN 48 mL/min (90-120)
[2020-08-07 18:37] LABS: GLUCOSE 111 mg/dL (74-106)
[2020-08-07 18:37] LABS: BILIRUBIN NEGATIVE (NEGATIVE); KETONE NEGATIVE mg/dL (< 1+); NITRITE NEGATIVE (NEGATIVE); SQUAMOUS EPITHELIAL <1 HPF (0-4); UROBILINOGEN NORMAL mg/dL (< 2); WHITE CELLS - URINE 1 HPF (0-1)
[2020-08-07 18:39] LABS: LYMPHOCYTES 59 % (15-50); MONOCYTES 10 % (2-11); NEUTROPHILS 31 % (40-80); PLATELET ESTIMATE NORMAL
[2020-08-07 18:46] LABS: UDS - AMPHET NEGATIVE QUAL (NEGATIVE); UDS - BARB NEGATIVE QUAL (NEGATIVE); UDS - BENZO NEGATIVE QUAL (NEGATIVE); UDS - COCAINE NEGATIVE QUAL (NEGATIVE); UDS - OPIATE NEGATIVE QUAL (NEGATIVE); UDS - PCP NEGATIVE QUAL (NEGATIVE); UDS - THC NEGATIVE QUAL (NEGATIVE)
[2020-08-07] MEDS ORDERED: CRESTOR10 MG (18:48)
[2020-08-07 18:54] LABS: ALBUMIN 3.9 g/dL (3.4-5.0); ALKALINE PHOSPHATASE 124 U/L (30-120); BILIRUBIN - TOTAL 0.49 mg/dL (0.2-1.3); CKMB 0.6 U/L (0.0-3.6); CREATINE KINASE 67 UL (21-232); MAGNESIUM - SERUM 1.7 mg/dL (1.8-2.4); PROTEIN - SERUM 7.8 g/dL (6.4-8.2); THYROID STIMULATING HORMONE 2.66 uIU/mL (0.36-3.74)
[2020-08-07 18:58] LABS: ALT (SGPT) 2 U/L (10-68); TROPONIN-I < 0.017 ng/mL (0.000-0.060)
[2020-08-07 19:45] VITALS: BP 123/65
[2020-08-07 20:03] LABS: SARS-CoV-2 ANTIGEN NEGATIVE- SARS-COV-2 (NEGATIVE)
== END 2020-08-07 21:11 | disposition other institution (70) ==
LOC: D.ER 17:30
PROVIDERS: Family Medicine
DX: C71.9 Malignant neoplasm of brain, unspecified (principal); I61.1 Nontraumatic intracerebral hemorrhage in hemisphere, cortical; R07.9 Chest pain, unspecified